=== PATIENT | male | born 1955 | race Caucasian/White ===

== ENCOUNTER 2025-08-01 12:45 | Emergency (ER) | payer MEDICARE, BC, SELFPAY ==
[2025-08-01 12:46] VITALS: BP 162/69; PULSE 66; RESP 18; TEMP 36.4; O2SAT 100; BMI 29.0
[2025-08-01 14:45] VITALS: BP 167/75; PULSE 57; RESP 16; O2SAT 98
--- NOTE | 2025-08-01 15:03 | CM.ED ---
Social Work Date of referral: 08/01/25 Reason for referral: Advanced Care Directives (ACD's) not on file. Patient provided consent to social work visit. [facility] requested copy of ACD's which patient agreed to bring in. Rachel Love, NEUROLOGICAL SURGEON, FIELD EXAMINER
--- NOTE | 2025-08-01 15:15 | CT_ITS ---
PROCEDURE: BRAIN/HEAD WITHOUT CONTRAST 08/01/2025 REASON FOR EXAM: INJURY TECHNIQUE: Procedure Code: CTBR Modality: CT Procedure: BRAIN/HEAD WITHOUT CONTRAST Coronal and Sagittal reconstruction series were provided. One or more dose reduction techniques were used (e.g., Automated exposure control, adjustment of the mA and/or kV according to patient size, use of iterative reconstruction technique. RADIATION DOSE SUMMARY: CTDlvol: 45 mGy DLP: 863 mGycm FINDINGS: No intracranial mass. No intracranial hemorrhage. No edema. No extra-axial mass or fluid collection. Negative for calvarial fracture. Negative for intracranial mass CT/Brain/Head without Contrast IMPRESSION: No acute abnormality. Reading Location: [facility]
--- OUTSIDE RECORDS SUMMARY | 2025-08-01 15:37 | XMS RPT_ITS | CCD ---
Author Organization [facility] Care Team Providers Care 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 Name Role Phone Sophia Martin MD Primary Care Provider Sophia Martin MD Primary Care Provider [phone] Haagen ROLLING CHAIR PUSHER.Sally CRAVEN Unavailable Suppan ROLLING CHAIR PUSHER.Cristiane CRAVEN Unavailable SOPHIA MARTIN Attending Unavailable SOPHIA MARTIN Primary Care Unavailable SOPHIA MARTIN Referring Unavailable SOPHIA MARTIN Primary Care Unavailable Allergies Allergy Classification Reported Allergen(s) Allergy Type Date of Onset Reaction(s) Facility (10 sources) Seasonal allergy; Translations: [SEASONAL ALLERGIES] Allergy to substance 2 Other: See Comments [facility] (10 sources) Sulfonamides (Antibiotic); Translations: [SULFA (SULFONAMIDE ANTIBIOTICS)] Propensity to adverse reactions 3 [facility] Work Phone: Medications Current Medications Medication Drug Class(es) Dates Sig (Normalized) Sig (Original) CPAP/BIPAP/OTHER (8 sources) CPAP/BIPAP/OTHER 1 % by VIA DEVICE route once daily. Type .CPAPSettings into a note to see current settings/supplies/DME information. Active CPAP/BIPAP/OTHER 1 % by VIA DEVICE route once daily. Type .CPAPSettings into a note to see current settings/supplies/DME information. 0 Active Comment on above: 1 % by VIA DEVICE ro rafael once daily. Type .CPAPSettings into a note to see current settings/supplies/DME information. famotidine 40 mg oral tablet (8 sources) Histamine-2 Receptor Antagonist famotidine (PEPCID) 40 mg tablet Take 40 mg by mouth as needed. Active Comment on above: Take 40 mg by mouth as needed. Completed/Discontinued Medications Medication Drug Class(es) Dates Sig (Normalized) Sig (Original) polyethylene glycol 3350 891052 mg / potassium chloride 2970 mg / sodium bicarbonate 6740 mg / sodium chloride 5860 mg / sodium sulfate 83619 mg powder for oral solution (1 source) Osmotic Laxative Start: 05-10-2023 End: 05-10-2023 peg 3350-Electrolytes (GOLYTELY) 236-22.74-6.74 -5.86 gram suspension Take 4,000 mL by mouth one time only for 1 dose. 1 Each 0 05/10/2023 05/10/2023 Comment on above: Take 4,000 mL by ruth th one time only for 1 dose. Problems Active Problems Problem Classification Problem Date Documented Da te Episodic/Chronic Disorders of lipid metabolism (3 sources) Hypertriglyceridemia; Translations: [Pure hyperglyceridemia] Onset: 5 05-09-2023 Chronic Esophageal disorders (10 sources) Gastroesophageal reflux disease; Translations: [Gastro-esophageal reflux disease without esophagitis] Onset: 8 03-02-2008 Chronic Gout and other crystal arthropathies (13 sources) Gout; Translations: [Gout, unspecified] Onset: 1 05-09-2023 Chronic Hyperplasia of prostate (1 source) Benign prostatic hyperplasia; Translations: [Benign prostatic hyperplasia without lower urinary tract symptoms] 05-09-2023 Chronic Immunizations and screening for infectious disease (3 sources) Vaccination needed; Translations: [Encounter for immunization] Onset: 5 05-09-2023 Episodic Other gastrointestinal disorders (1 source) Chronic constipation; Translations: [Other constipation] 05-09-2023 Episodic Other male genital disorders (9 sources) Male erectile dysfunction, unspecified; Translations: [Impotence of organic origin] Onset: 2 06-24-2012 Chronic Other nutritional; endocrine; and metabolic disorders (1 source) Cholesterol level - finding; Translations: [Lipoprotein deficiency] 05-22-2024 Chronic Other nutritional; endocrine; and metabolic disorders (10 sources) Body mass index 25-29 - overweight; Translations: [Overweight] 05-03-2021 Episodic Other screening for suspected conditions (not mental disorders or infectious disease) (10 sources) Patient encounter status; Translations: [Encounter for screening for malignant neoplasm of colon] Onset: 5 05-09-2023 Episodic Other skin disorders (1 source) Lesion of face; Translations: [Disorder of the skin and subcutaneous tissue, unspecified] 05-09-2023 Episodic Other skin disorders (1 source) Skin lesion; Translations: [Disorder of the skin and subcutaneous tissue, unspecified] 05-22-2024 Episodic Residual codes; unclassified (12 sources) Obstructive sleep apnea syndrome; Translations: [Obstructive sleep apnea (adult) (pediatric)] Onset: 8 05-09-2023 Chronic Residual codes; unclassified (1 source) Obstructive sleep apnea (adult) (pediatric); Translations: [Obstructive sleep apnea] Onset: 1 Chronic Residual codes; unclassified (15 sources) Family history of cancer of colon; Translations: [Family history of malignant neoplasm of digestive organs] Onset: 8 05-09-2023 Episodic Screening and history of mental health and substance abuse codes (2 sources) Encounter for screening examination for other mental health and behavioral disorders; Translations: [Encounter for screening for depression] Onset: 5 Episodic Spondylosis; intervertebral disc disorders; other back problems (12 sources) Degeneration of lumbar intervertebral disc; Translations: [Other intervertebral disc degeneration, lumbar region] Onset: 8 05-09-2023 Chronic Unclassified (1 source) Degeneration of intervertebral disc of lumbar region, unspecified whether pain present; Translations: [Degeneration of intervertebral disc of lumbar region, unspecified whether pain present] Onset: 8 Past or Other Problems Problem Classification Problem Date Documented Da te Episodic/Chronic Allergic reactions (11 sources) Eczema; Translations: [Dermatitis, unspecified] Onset: 03-08-2017 03-08-2017 Episodic Gastritis and duodenitis (4 sources) Gastritis; Translations: [Other gastritis without bleeding] Onset: 05-28-2006 Resolved: 12-23-2014 12-23-2014 Episodic Other nervous system disorders (4 sources) Spinal cord disease; Translations: [Other specified diseases of spinal cord] Onset: 07-29-2003 Resolved: 01-18-2014 01-18-2014 Chronic Other skin disorders (9 sources) Seborrheic keratosis; Translations: [Other seborrheic keratosis] Resolved: 06-09-2025 05-03-2021 Episodic Residual codes; unclassified (1 source) Family history of malignant neoplasm of digestive organs; Translations: [Family history of colon cancer in father] Onset: 04-11-2018 Episodic Viral infection (4 sources) 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; 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] Onset: 07-29-2003 Resolved: 01-18-2014 01-18-2014 Episodic Results Test Name Value Interpretation Reference Range Facility CBC W Auto Differential pane l (Bld)on 07-12-2025 Basophils (Bld) [#/Vol] 0.06 10*3/uL Normal <0.11 [facility] Comment on above: Order Comment: Evelinai julio cesar Type: BLOOD SPECIMEN Ordering Facility: [facility] Address: [address] [place] [address] Performed By: #### 5 7021-8 #### [facility] CLIA [id number] [address] [place] [address] [place] Basophils/100 WBC (Bld) 0.9 % Normal [facility] Comment on above: Order Comment: Speci men Type: BLOOD SPECIMEN Ordering Facility: [facility] Address: [address] [place] [address] Performed By: #### 5 7021-8 #### [facility] CLIA [id number] [address] [place] [address] [place] Differential cell count method Nom (Bld) Auto Normal [facility] Comment on above: Order Comment: Speci men Type: BLOOD SPECIMEN Ordering Facility: [facility] Address: [address] [place] [address] Performed By: #### 5 7021-8 #### [facility] CLIA [id number] [address] [place] [address] [place] Eosinophils (Bld) [#/Vol] 0.28 10*3/uL Normal <0.46 [facility] Comment on above: Order Comment: Speci men Type: BLOOD SPECIMEN Ordering Facility: [facility] Address: [address] [place] [address] Performed By: #### 5 7021-8 #### [facility] CLIA [id number] [address] [place] [address] [place] Eosinophils/100 WBC (Bld) 4.1 % Normal [facility] Comment on above: Order Comment: Speci men Type: BLOOD SPECIMEN Ordering Facility: [facility] Address: [address] [place] [address] Performed By: #### 5 7021-8 #### [facility] CLIA [id number] [address] [place] [address] [place] Erythrocyte distribution width (RBC) [Ratio] 13.0 % Normal 11.5-15.0 [facility] Comment on above: Order Comment: Speci men Type: BLOOD SPECIMEN Ordering Facility: [facility] Address: [address] [place] [address] Performed By: #### 5 7021-8 #### [facility] CLIA [id number] [address] [place] [address] [place] Hematocrit (Bld) [Volume fraction] 46.9 % Normal 39.0-51.0 [facility] Comment on above: Order Comment: Speci men Type: BLOOD SPECIMEN Ordering Facility: [facility] Address: [address] [place] [address] Performed By: #### 5 7021-8 #### [facility] CLIA [id number] [address] [place] [address] [place] Hemoglobin (Bld) [Mass/Vol] 15.9 g/dL Normal 13.0-17.0 [facility] Comment on above: Order Comment: Speci men Type: BLOOD SPECIMEN Ordering Facility: [facility] Address: [address] [place] [address] Performed By: #### 5 7021-8 #### [facility] CLIA [id number] [address] [place] [address] [place] Immature granulocytes (Bld) [#/Vol] 0.08 10*3/uL Normal <0.10 [facility] Comment on above: Order Comment: Speci men Type: BLOOD SPECIMEN Ordering Facility: [facility] Address: [address] [place] [address] Performed By: #### 5 7021-8 #### [facility] CLIA [id number] [address] [place] [address] [place] Immature granulocytes/100 WBC (Bld) 1.2 % Normal [facility] Comment on above: Order Comment: Speci men Type: BLOOD SPECIMEN Ordering Facility: [facility] Address: [address] [place] [address] Performed By: #### 5 7021-8 #### [facility] CLIA [id number] [address] [place] [address] [place] Lymphocytes (Bld) [#/Vol] 1.38 10*3/uL Normal 1.00-4.00 [facility] Comment on above: Order Comment: Speci men Type: BLOOD SPECIMEN Ordering Facility: [facility] Address: [address] [place] [address] Performed By: #### 5 7021-8 #### [facility] CLIA [id number] [address] [place] [address] [place] Lymphocytes/100 WBC (Bld) 20.4 % Normal [facility] Comment on above: Order Comment: Speci men Type: BLOOD SPECIMEN Ordering Facility: [facility] Address: [address] [place] [address] Performed By: #### 5 7021-8 #### [facility] CLIA [id number] [address] [place] [address] [place] MCH (RBC) [Entitic mass] 31.1 pg Normal 26.0-34.0 [facility] Comment on above: Order Comment: Speci men Type: BLOOD SPECIMEN Ordering Facility: [facility] Address: [address] [place] [address] Performed By: #### 5 7021-8 #### [facility] CLIA [id number] [address] [place] [address] [place] MCHC (RBC) [Mass/Vol] 33.9 g/dL Normal 30.5-36.0 [facility] Comment on above: Order Comment: Speci men Type: BLOOD SPECIMEN Ordering Facility: [facility] Address: [address] [place] [address] Performed By: #### 5 7021-8 #### [facility] CLIA [id number] [address] [place] [address] [place] MCV (RBC) [Entitic vol] 91.6 fL Normal 80.0-100.0 [facility] Comment on above: Order Comment: Speci men Type: BLOOD SPECIMEN Ordering Facility: [facility] Address: [address] [place] [address] Performed By: #### 5 7021-8 #### [facility] CLIA [id number] [address] [place] [address] [place] Monocytes (Bld) [#/Vol] 0.58 10*3/uL Normal <0.87 [facility] Comment on above: Order Comment: Speci men Type: BLOOD SPECIMEN Ordering Facility: [facility] Address: [address] [place] [address] Performed By: #### 5 7021-8 #### [facility] CLIA [id number] [address] [place] [address] [place] Monocytes/100 WBC (Bld) 8.6 % Normal [facility] Comment on above: Order Comment: Speci men Type: BLOOD SPECIMEN Ordering Facility: [facility] Address: [address] [place] [address] Performed By: #### 5 7021-8 #### [facility] CLIA [id number] [address] [place] [address] [place] Neutrophils (Bld) [#/Vol] 4.40 10*3/uL Normal 1.45-7.50 [facility] Comment on above: Order Comment: Speci men Type: BLOOD SPECIMEN Ordering Facility: [facility] Address: [address] [place] [address] Performed By: #### 5 7021-8 #### [facility] CLIA [id number] [address] [place] [address] [place] Neutrophils/100 WBC (Bld) 64.8 % Normal [facility] Comment on above: Order Comment: Speci men Type: BLOOD SPECIMEN Ordering Facility: [facility] Address: [address] [place] [address] Performed By: #### 5 7021-8 #### [facility] CLIA [id number] [address] [place] [address] [place] Nucleated RBC (Bld) [#/Vol] 10*3/uL Normal <0.01 [facility] Comment on above: Order Comment: Speci men Type: BLOOD SPECIMEN Ordering Facility: [facility] Address: [address] [place] [address] Performed By: #### 5 7021-8 #### [facility] CLIA [id number] [address] [place] [address] [place] Nucleated RBC/100 WBC (Bld) [Ratio] 0.0 /100 WBC Normal [facility] Comment on above: Order Comment: Speci men Type: BLOOD SPECIMEN Ordering Facility: [facility] Address: [address] [place] [address] Performed By: #### 5 7021-8 #### [facility] CLIA [id number] [address] [place] [address] [place] Platelet mean volume (Bld) [Entitic vol] 10.0 fL Normal 9.0-12.7 [facility] Comment on above: Order Comment: Speci men Type: BLOOD SPECIMEN Ordering Facility: [facility] Address: [address] [place] [address] Performed By: #### 5 7021-8 #### [facility] CLIA [id number] [address] [place] [address] [place] Platelets (Bld) [#/Vol] 187 10*3/uL Normal 150-400 [facility] Comment on above: Order Comment: Speci men Type: BLOOD SPECIMEN Ordering Facility: [facility] Address: [address] [place] [address] Performed By: #### 5 7021-8 #### [facility] CLIA [id number] [address] [place] [address] [place] RBC (Bld) [#/Vol] 5.12 10*6/uL Normal 4.20-6.00 [facility] Comment on above: Order Comment: Speci men Type: BLOOD SPECIMEN Ordering Facility: [facility] Address: [address] [place] [address] Performed By: #### 5 7021-8 #### [facility] CLIA [id number] [address] [place] [address] [place] WBC (Bld) [#/Vol] 6.78 10*3/uL Normal 3.70-11.00 [facility] Comment on above: Order Comment: Speci men Type: BLOOD SPECIMEN Ordering Facility: [facility] Address: [address] [place] [address] Performed By: #### 5 7021-8 #### [facility] CLIA [id number] [address] [place] [address] [place] Comprehensive metabolic 2000 panelon 07-12-2025 Albumin [Mass/Vol] 4.2 g/dL Normal 3.9-4.9 [facility] Comment on above: Order Comment: Speci men Type: BLOOD SPECIMEN Ordering Facility: [facility] Address: [address] [place] [address] Performed By: #### 2 4323-8, 82133-2 #### [facility] CLIA [id number] [address] [place] [address] [place] ALP [Catalytic activity/Vol] 99 U/L Normal 38-113 [facility] Comment on above: Order Comment: Speci men Type: BLOOD SPECIMEN Ordering Facility: [facility] Address: [address] [place] [address] Performed By: #### 2 4323-8, 61270-6 #### [facility] CLIA [id number] [address] [place] [address] [place] ALT [Catalytic activity/Vol] 27 U/L Normal 10-54 [facility] Comment on above: Order Comment: Speci men Type: BLOOD SPECIMEN Ordering Facility: [facility] Address: [address] [place] [address] Performed By: #### 2 4323-8, 93431-9 #### [facility] CLIA [id number] [address] [place] [address] [place] Anion gap [Moles/Vol] 10 mmol/L Normal 8-15 [facility] Comment on above: Order Comment: Speci men Type: BLOOD SPECIMEN Ordering Facility: [facility] Address: [address] [place] [address] Performed By: #### 2 4323-8, 51175-1 #### [facility] CLIA [id number] [address] [place] [address] [place] AST [Catalytic activity/Vol] 20 U/L Normal 14-40 [facility] Comment on above: Order Comment: Speci men Type: BLOOD SPECIMEN Ordering Facility: [facility] Address: [address] [place] [address] Performed By: #### 2 4323-8, 04964-1 #### [facility] CLIA [id number] [address] [place] [address] [place] Bilirubin [Mass/Vol] 1.0 mg/dL Normal 0.2-1.3 [facility] Comment on above: Order Comment: Speci men Type: BLOOD SPECIMEN Ordering Facility: [facility] Address: [address] [place] [address] Performed By: #### 2 4323-8, 37388-7 #### [facility] CLIA [id number] [address] [place] [address] [place] Calcium [Mass/Vol] 9.3 mg/dL Normal 8.5-10.2 [facility] Comment on above: Order Comment: Speci men Type: BLOOD SPECIMEN Ordering Facility: [facility] Address: [address] [place] [address] Performed By: #### 2 4323-8, 17691-1 #### [facility] CLIA [id number] [address] [place] [address] [place] Chloride [Moles/Vol] 103 mmol/L Normal 98-107 [facility] Comment on above: Order Comment: Speci men Type: BLOOD SPECIMEN Ordering Facility: [facility] Address: [address] [place] [address] Performed By: #### 2 4323-8, 05599-0 #### [facility] CLIA [id number] [address] [place] [address] [place] CO2 [Moles/Vol] 27 mmol/L Normal 22-30 [facility] Comment on above: Order Comment: Speci men Type: BLOOD SPECIMEN Ordering Facility: [facility] Address: [address] [place] [address] Performed By: #### 2 4323-8, 71530-8 #### [facility] CLIA [id number] [address] [place] [address] [place] Creatinine [Mass/Vol] 0.99 mg/dL Normal 0.73-1.22 [facility] Comment on above: Order Comment: Speci men Type: BLOOD SPECIMEN Ordering Facility: [facility] Address: [address] [place] [address] Performed By: #### 2 4323-8, 25987-4 #### [facility] CLIA [id number] [address] [place] [address] [place] eGFRcr SerPlBld CKD-EPI 2020 82 mL/min/1.73m??? Normal >=60 [facility] Comment on above: Order Comment: Speci men Type: BLOOD SPECIMEN Ordering Facility: [facility] Address: [address] [place] [address] Result Comment: Arpita mated Glomerular Filtration Rate (eGFR) is calculated using the 2020 CKD-EPI creatinine equation. This equation utilizes serum creatinine, sex, and age as parameters. The creatinine assay has traceable calibration to isotope dilution-mass spectrometry. Refer to KDIGO guidelines for clinical interpretation. In patients with unstable renal function, e.g. those with acute kidney injury, the eGFR may not accurately reflect actual GFR. Performed By: #### 2 4323-8, 90772-6 #### [facility] CLIA [id number] [address] [place] [address] [place] Glucose [Mass/Vol] 91 mg/dL Normal 74-99 [facility] Comment on above: Order Comment: Jani harrell Type: BLOOD SPECIMEN Ordering Facility: [facility] Address: [address] [place] [address] Result Comment: The [place] [employer] (ADA) provides guidance for cutoff values for fasting glucose and random glucose. The ADA defines fasting as no caloric intake for at least 8 hours. Fasting plasma glucose results between 100 to 125 mg/dL indicate increased risk for diabetes (prediabetes). Fasting plasma glucose results greater than or equal to 126 mg/dL meet the criteria for diagnosis of diabetes. In the absence of unequivocal hyperglycemia, results should be confirmed by repeat testing. In a patient with classic symptoms of hyperglycemia or hyperglycemic crisis, random plasma glucose results greater than or equal to 200 mg/dL meet the criteria for diagnosis of diabetes. Reference: Standards of Medical Care in Diabetes 2016, [place] [employer]. Diabetes Care. 2016.39(Suppl 1). Performed By: #### 2 4323-8, 18094-1 #### [facility] CLIA [id number] [address] [place] [address] [place] Potassium [Moles/Vol] 4.2 mmol/L Normal 3.7-5.1 [facility] Comment on above: Order Comment: Jani harrell Type: BLOOD SPECIMEN Ordering Facility: [facility] Address: [address] [place] [address] Performed By: #### 2 4323-8, 59665-6 #### [facility] CLIA [id number] [address] [place], [place] [address] [place] Protein [Mass/Vol] 6.7 g/dL Normal 6.3-8.0 [facility] Comment on above: Order Comment: Speci men Type: BLOOD SPECIMEN Ordering Facility: [facility] Address: [address] [place] [address] Performed By: #### 2 4323-8, 29630-2 #### [facility] CLIA [id number] [address] [place] [address] [place] Sodium [Moles/Vol] 140 mmol/L Normal 136-144 [facility] Comment on above: Order Comment: Speci men Type: BLOOD SPECIMEN Ordering Facility: [facility] Address: [address] [place] [address] Performed By: #### 2 4323-8, 51362-5 #### [facility] CLIA [id number] [address] [place] [address] [place] Urea nitrogen [Mass/Vol] 15 mg/dL Normal 9-24 [facility] Comment on above: Order Comment: Speci men Type: BLOOD SPECIMEN Ordering Facility: [facility] Address: [address] [place] [address] Performed By: #### 2 4323-8, 13289-0 #### [facility] CLIA [id number] [address] [place] [address] [place] Lipid 1996 panelon 5 Cholesterol [Mass/Vol] 170 mg/dL Normal <200 [facility] Comment on above: Order Comment: Speci men Type: BLOOD SPECIMEN Ordering Facility: [facility] Address: [address] [place] [address] Result Comment: <200 mg/dL, Desirable 200-239 mg/dL, Borderline high >239 mg/dL, High Performed By: #### 2 4323-8, 96425-4 #### [facility] MAIN LAB CLIA [id number] [address] [place] [address] [place] Cholesterol in HDL [Mass/Vol] 41 mg/dL Normal >39 [facility] Comment on above: Order Comment: Speci men Type: BLOOD SPECIMEN Ordering Facility: [facility] Address: [address] [place], [place] [id number] Result Comment: 40-5 9 mg/dL, Acceptable >59 mg/dL, High: Negative risk factor for coronary heart disease <40 mg/dL, Low: Positive risk factor for coronary heart disease Performed By: #### 2 4323-8, 24078-1 #### [facility] CLIA [id number] [address] [place] [address] [place] Cholesterol in LDL [Mass/Vol] 107 mg/dL High <100 [facility] Comment on above: Order Comment: Jani harrell Type: BLOOD SPECIMEN Ordering Facility: [facility] Address: [address] [place] [address] Result Comment: <100 mg/dL, Optimal 100-129 mg/dL, Near optimal/above optimal 130-159 mg/dL, Borderline high 160-189 mg/dL, High >189 mg/dL, Very high Secondary prevention optimal LDL Cholesterol levels are recommended to be <70 mg/dL LDL cholesterol is calculated using the Morales-NIH equation. Performed By: #### 2 4323-8, #### [facility] CLIA [id number] [facility] [place] [address] [place] Cholesterol in LDL/Cholesterol in HDL [Mass ratio] 2.61 {ratio} High <2.54 [facility] Comment on above: Order Comment: Jani harrell Type: BLOOD SPECIMEN Ordering Facility: [facility] Address: [address] [place] [address] Result Comment: Janie martines: 1. National Cholesterol Education Program ATP III Guideline At-A-Glance Quick Desk Reference: National Heart, Lung, and Blood [place]. National Institutes of Health. 2001: NIH Publication No. 01-3305. 2. An International Atherosclerosis Society position paper: global recommendations for the management of dyslipidemia: executive summary, Atherosclerosis. 2014: 232(2):410-413. Performed By: #### 2 4323-8, 10345-7 #### [facility] CLIA [id number] [address] [place] [address] [place] Cholesterol in VLDL [Mass/Vol] 20 mg/dL Normal <30 [facility] Comment on above: Order Comment: Speci men Type: BLOOD SPECIMEN Ordering Facility: [facility] Address: [address] [place] [address] Performed By: #### 2 4323-8, 91319-2 #### [facility] CLIA [id number] [address] [place] [address] [place] Cholesterol non HDL [Mass/Vol] 129 mg/dL Normal <130 [facility] Comment on above: Order Comment: Speci men Type: BLOOD SPECIMEN Ordering Facility: [facility] Address: [address] [place] [address] Result Comment: <130 mg/dL, Optimal 130-159 mg/dL, Near optimal/above optimal 160-189 mg/dL, Borderline high 190-219 mg/dL, High >219 mg/dL, Very high Secondary prevention optimal non HDL Cholesterol levels are recommended to be <100 mg/dL Performed By: #### 2 4323-8, 78862-3 #### [facility] CLIA [id number] [address] [place] [address] [place] Cholesterol.total /Cholesterol in HDL [Mass ratio] 4.15 {ratio} Normal <5.10 [facility] Comment on above: Order Comment: Speci men Type: BLOOD SPECIMEN Ordering Facility: [facility] Address: [address] [place] [address] Performed By: #### 2 4323-8, 66576-0 #### [facility] CLIA [id number] [address] [place] [address] [place] FASTING TIME 12 hrs Normal [facility] Comment on above: Order Comment: Speci men Type: BLOOD SPECIMEN Ordering Facility: [facility] Address: [address] [place] [address] Performed By: #### 2 4323-8, 80625-4 #### [facility] CLIA [id number] [address] [place] [address] [place] Triglyceride [Mass/Vol] 121 mg/dL Normal <150 [facility] Comment on above: Order Comment: Speci men Type: BLOOD SPECIMEN Ordering Facility: [facility] Address: [address] [place] [address] Result Comment: <150 mg/dL, Normal 150-199 mg/dL, Borderline high 200-499 mg/dL, High >499 mg/dL, Very high Performed By: #### 2 4323-8, 37312-7 #### [facility] CLIA [id number] [address] [place] [address] [place] PSA/PROSTATE SPECIFIC ANTIGE N SCREENINGon 07-12-2025 Prostate specific Ag [Mass/Vol] 1.06 ng/mL Normal <2.60 [facility] Comment on above: Order Comment: Speci men Type: BLOOD SPECIMEN Ordering Facility: [facility] Address: [address] [place] [address] Result Comment: Tota l PSA test methodology used is the Electrochemiluminescence Immunoassay by [employer]. Total PSA values by differing methodologies cannot be interchanged. Performed By: #### P SAS1 #### [facility] CLIA [id number] [address] [place] [address] OF [facility] CNOVon 06-09-2025 CNOV Office Visit (FAMPWS ) BARTOLOME LIU ([id number]) 1955 M Date Time Provider Department 06/09/25 8:00 AM [facility] During your visit today, we recorded the following information about you: Pulse Blood pressure 63/minute 100/57 Sophia aMrtin MD 06/09/2025 9:29 AM Signed Bartolome Liu is a 69 year old male here for a Medicare wellness visit. Medicare Health Risk Assessment General Health Pretty good. Exercise: Minutes/Day Six hours Exercise: Days/Week Six Alcohol: Daily Use no Alcohol: Drinks/Day no Alcohol: 6 or more drinks no Feel off balance no Concerns: Teeth/Dentures no Concerns: Sexual function Some ED Troubled by feelings no Frequency: Eating healthy diet seven ADLs requiring help none Safety precautions in home/vehicle yes Smoke, vape, chews tobacco no Difficulty hearing Some. Right ear deaf. Difficulty seeing Doing well after cataract. Current Providers Specialists: I have reviewed specialist-related care of the patient in the medical record. Current care team: Patient Care Team: Sophia Martin MD as PCP - General (Family Medicine) Sally Pathak APRN.HERBER as Business Applications Manager (Family Medicine) Cristiane Ledezma APRN.CNP as Business Applications Manager (Family Medicine) Outside specialists seen: Dr Barros, optemetry. Dr Mendoza, sleep med Medical/Family history review Reviewed and updated problem list, medical/surgical/family/soci al history, medications, and allergies. Opioid use review Opioid Medications (last 90 days) No data to display Anxiety/Depression screening (Lower risk for depression) GAMAL-2 Score: 0 Recommendation: no further intervention at this time Cognitive screening Mini Cog Score: 5 Cognitive screening reviewed and No further action needed (score 3-5). Functional Observation Was the patient's Timed Up AND Go test unsteady or >= 12 seconds? No Advance Care Planning Surrogate decision maker and/or advance care plan documented Measurements BP 100/57 Pulse 63 SpO2 97% Vision Screening: Follows with optometry/ophthalmology ADDITIONAL INFO: Annual Wellness Exam: - Bartolome Liu describes general health as pretty good. - Engages in outdoor work approximately 6 hours/day, 6 days/week. - Denies alcohol consumption; does not smoke, vape, or chew tobacco. - Adheres to a healthy diet 7 days/week. - Denies issues with balance, teeth, or dentures. - Denies feeling nervous, anxious, or on edge; no difficulty controlling worrying. - Denies feeling down, depressed, or hopeless; no loss of interest or pleasure in activities. - Denies current ear or eye pain. - Denies current chest pain, swelling, or palpitations. - Denies current cough or wheezing. - Denies use of pain pills or opioids. - Denies current issues with eczema or gout. - Denies current back pain. - Denies current issues with urination. - Denies current issues with ADLs. - Follows safety precautions in home and vehicle. - Has a medical living will; is primary decision-maker, followed by daughter. - Has not received a flu shot in several years; denies receiving RSV vaccine. - Sees Dr. Moise for eye care. - Sees Dr. Mendoza for sleep apnea management. - Allergic to sulfa; has hay fever. 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 - Left ear hearing is pretty good. Vision: - Underwent cataract surgery a few years ago; vision is nearly 20/20. - Requires reading glasses for small print. - Experiences floaters approximately twice a week; denies frequent flashes of light. ED: - Experiences erectile dysfunction; previously used Viagra and Cialis but discontinued. Sleep Apnea: - Managed with CPAP; doing well. GERD: - Managed with Pepcid PRN; took 1-2 doses in the last 30 days. Constipation: - Chronic issue; uses stool softeners occasionally but dislikes the unpredictability of their effect. ROS: Eyes: (+) floaters, (+) flashes of light, (+) difficulty reading small print, (-) eye pain Ears/Nose/Mouth/Throat: (+) right ear hearing loss, (-) dental problems, (-) ear pain, (-) oral soreness Neck: (-) neck pain Cardiovascular: (-) chest pain, (-) palpitations, (-) edema, (-) syncope Respiratory: (-) cough, (-) wheezing Gastrointestinal: (+) constipation Genitourinary: (+) erectile dysfunction, (-) urinary issues Musculoskeletal: (-) back pain Neurological: (-) balance problems Psychiatric: (-) anxiety, (-) depressed mood PE: General: Alert, well-developed, no acute distress. HEENT: Tympanic membranes clear, mouth and throat unremarkable. Hearing loss noted in the right ear due to past eardrum damage. Vision is good post-cataract surgery with corrective lenses for reading. No pharyngeal erythema, no sinus tenderness. Neck: No JVD. No carotid bruit, carotids 2+ (more content not included)... Normal [facility] 08-17-2024 [facility] Telephone (FAMPWS) RAFAELA LIUMALIA Davis ([id number]) 1955 M Date Time Provider Department 08/17/24 SOPHIA MARTIN During your visit today, we recorded the following information about you: Yumiko Chauhan LPN 08/17/2024 11:39 AM Signed After provider reviews pt would like a copy mailed to him. Per 06/13/24 lab results: Message in labs: Sophia Martin MD 06/15/2024 8:08 AM EDT See TELEPHONE ENCOUNTER regarding lab results. Staff will call patient to review next steps. TE message: Sophia Martin MD 06/15/24 8:09 AM Note Let him know his ldl is a little higher. Watch cholesterol in the diet. Sophia Martin MD Pt reports he never heard back on lab results. Please review and advise if there is more to the result message. Latest Ref Rng 06/13/2024 WBC 3.70 - 11.00 k/uL 7.06 RBC 4.20 - 6.00 m/uL 4.98 Hemoglobin 13.0 - 17.0 g/dL 15.2 Hematocrit 39.0 - 51.0 % 45.7 MCV 80.0 - 100.0 fL 91.8 MCH 26.0 - 34.0 pg 30.5 MCHC 30.5 - 36.0 g/dL 33.3 RDW-CV 11.5 - 15.0 % 12.8 Platelet Count 150 - 400 k/uL 197 MPV 9.0 - 12.7 fL 10.1 Neut% % 63.4 Abs Neut (ANC) 1.45 - 7.50 k/uL 4.48 Lymph% % 21.1 Abs Lymph 1.00 - 4.00 k/uL 1.49 Bailey% % 9.1 Abs Bailey <0.87 k/uL 0.64 Eosin% % 4.7 Abs Eosin <0.46 k/uL 0.33 Baso% % 0.6 Abs Baso <0.11 k/uL 0.04 Immature Gran % % 1.1 IMMATURE GRANS (ABS) <0.10 k/uL 0.08 NRBC /100 WBC 0.0 Absolute nRBC <0.01 k/uL <0.01 DTYPE Auto Protein, Total 6.3 - 8.0 g/dL 6.8 Albumin 3.9 - 4.9 g/dL 4.2 Calcium 8.5 - 10.2 mg/dL 9.5 Bilirubin, Total 0.2 - 1.3 mg/dL 0.7 Alkaline Phosphatase 38 - 113 U/L 108 AST 14 - 40 U/L 28 ALT 10 - 54 U/L 32 Glucose 74 - 99 mg/dL 99 BUN 9 - 24 mg/dL 17 Creatinine 0.73 - 1.22 mg/dL 0.98 Sodium 136 - 144 mmol/L 142 Potassium 3.7 - 5.1 mmol/L 4.3 Chloride 98 - 107 mmol/L 105 CO2 22 - 30 mmol/L 26 Anion Gap 8 - 15 mmol/L 11 eGFR >=60 mL/min/1.73m? 83 Cholesterol, Total <200 mg/dL 162 Triglyceride <150 mg/dL 105 HDL Cholesterol >39 mg/dL 39 (L) Non HDL Cholesterol <130 mg/dL 123 Fasting Time hrs 12 VLDL Cholesterol <30 mg/dL 21 TC:HDL Ratio <5.10 4.15 LDL Cholesterol <100 mg/dL 102 (H) LDL:HDL Ratio <2.54 2.62 (H) PSA Screening <2.60 ng/mL 1.27 Legend: (L) Low (H) High Sophia Martin MD 08/17/2024 11:44 AM Signed See note. He is overall ok. Flavia Redding MA 08/17/2024 12:16 PM Signed Called and left message on patients voicemail to return call to the office and ask to speak with a FM triage nurse. AIDA Warren Donna M, RN 08/17/2024 1:38 PM Signed Spoke with patient. Given message from provider's office. Patient verbalizes understanding. Noe Philippe RN Allergies As of Date: 08/17/2024 Noted Allergy Reaction HAY FEVER (SEASONAL ALLERGIES) 06/24/2012 14 - Other: See Comments SULFA (SULFONAMIDE ANTIBIOTICS) 07/29/2003 Date Reviewed: 05/22/2024 Reviewed by: Sophia Martin MD - Fully Assessed Reason for Visit: Results [95] Prescriptions as of 08/17/2024 - famotidine (PEPCID) 40 mg tablet Take 40 mg by mouth as needed. - CPAP/BIPAP/OTHER 1 % by VIA DEVICE route once daily. Type .CPAPSettings into a note to see current settings/supplies/DME information. 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 Other myelopathy (HCC) [G95.89] 07/29/2003 01/18/2014 Other specified gastritis without mention of he*05/28/2006 12/23/2014 ESOPHAGEAL REFLUX [K21.9] 03/02/2008 Erectile dysfunction [N52.9] 06/24/2012 Eczema [L30.9] 03/08/2017 DDD (degenerative disc disease), lumbar [M51.36*10/03/2017 Family history of colon cancer in father [Z80.0]04/11/2018 Overweight (BMI 25.0-29.9) [E66.3] Obstructive sleep apnea [G47.33] 03/2018 Gout, unspecified [M10.9] Seborrheic keratosis [L82.1] Encounter Status:Closed by NOE PHILIPPE on 08/17/24 Normal [facility] COLONOSCOPY SCREENINGon - [facility] Vital Signs Date Time Vital Sign Value Performing Clinician Shun jules 06-09-2025 07:57-0400 Diastolic blood pressure 57 mm[Hg] Sophia Martin MD Work Phone: [facility] 06-09-2025 07:57-0400 Heart rate 63 /min Sophia Martin MD Work Phone: [facility] 06-09-2025 07:57-0400 SaO2% (BldA) [Mass fraction] 97 % Sophia Martin MD Work Phone: [facility] 06-09-2025 07:57-0400 Systolic blood pressure 100 mm[Hg] Sophia Martin MD Work Phone: [facility] 05-22-2024 08:07-0400 Body mass index (BMI) [Ratio] 28.73 kg/m2 Sophia Martin MD Work Phone: [facility] 05-22-2024 08:07-0400 Body weight 93.44 kg Sophia Martin MD Work Phone: [facility] 05-22-2024 08:07-0400 Diastolic blood pressure 62 mm[Hg] Sophia Martin MD Work Phone: [facility] 05-22-2024 08:07-0400 Heart rate 65 /min Sophia Martin MD Work Phone: [facility] 05-22-2024 08:07-0400 SaO2% (BldA) [Mass fraction] 96 % Sophia Martin MD Work Phone: [facility] 05-22-2024 08:07-0400 Systolic blood pressure 122 mm[Hg] Sophia Martin MD Work Phone: [facility] 06-17-2023 08:54-0400 Diastolic blood pressure 69 mm[Hg] Rodolfo Hannah MD Work Phone: [facility] 06-17-2023 08:54-0400 Heart rate 52 /min Rodolfo Hannah MD Work Phone: [facility] 06-17-2023 08:54-0400 Respiratory rate 16 /min Rodolfo Hannah MD Work Phone: [facility] 06-17-2023 08:54-0400 SaO2% (BldA) [Mass fraction] 95 % Rodolfo Hannah MD Work Phone: [facility] 06-17-2023 08:54-0400 Systolic blood pressure 124 mm[Hg] Rodolfo Hannah MD Work Phone: [facility] 06-17-2023 07:49-0400 Body temperature 97.5 [degF] Rodolfo Hannah MD Work Phone: [facility] 06-17-2023 07:49-0400 Body weight 94.4 kg Rodolfo Hannah MD Work Phone: [facility] 05-10-2023 13:26-0400 Body height 180.3 cm Stacey Rafy PA-C Work Phone: [facility] 05-10-2023 13:26-0400 Body temperature 97.5 [degF] Stacey Gosnell PA-C Work Phone: [facility] 05-10-2023 13:26-0400 Body weight 94.44 kg Stacey Rafy PA-C Work Phone: [facility] 05-10-2023 13:26-0400 Diastolic blood pressure 64 mm[Hg] Stacey Gosnell PA-C Work Phone: [facility] 05-10-2023 13:26-0400 Heart rate 58 /min Stacey Gosnell PA-C Work Phone: [facility] 05-10-2023 13:26-0400 SaO2% (BldA) [Mass fraction] 97 % Stacey Rafy PA-C Work Phone: [facility] 05-10-2023 13:26-0400 Systolic blood pressure 122 mm[Hg] Stacey Rafy PA-C Work Phone: [facility] 05-09-2023 08:42-0400 Body height 177.8 cm Sophia Martin MD Work Phone: [facility] 05-09-2023 08:42-0400 Body weight 93.89 kg Sophia Martin MD Work Phone: [facility] 05-09-2023 08:42-0400 Diastolic blood pressure 66 mm[Hg] Sophia Martin MD Work Phone: [facility] 05-09-2023 08:42-0400 Heart rate 61 /min Sophia Martin MD Work Phone: [facility] 05-09-2023 08:42-0400 SaO2% (BldA) [Mass fraction] 97 % Sophia Martin MD Work Phone: [facility] 05-09-2023 08:42-0400 Systolic blood pressure 120 mm[Hg] Sophia Martin MD Work Phone: [facility] Encounters Encounter Date Encounter Type Care Provider Facility Start: 07-12-2025 End: 07-12-2025 ambulatory SOPHIA MARTIN Facility:[facility] Start: 06-09-2025 End: 06-09-2025 ambulatory SOPHIA MARTIN Facility:[facility] Start: 06-09-2025 End: 06-09-2025 Patient encounter procedure Sophia Martin MD Work Phone: Family [facility] Comment on above: Medicare annual well ness visit, subsequent (Primary Dx); Obstructive sleep apnea; Eczema, unspecified type; Gout, unspecified cause, unspecified chronicity, unspecified site; Degeneration of intervertebral disc of lumbar region, unspecified whether pain present; Encounter for immunization; Family history of colon cancer in father; Encounter for screening examination for other mental health and behavioral disorders; Screening for depression; Screening for prostate cancer; Mixed hyperlipidemia Start: 08-17-2024 End: 08-17-2024 Telephone encounter Sophia Martin MD Work Phone: Family [facility] Comment on above: Results Start: 06-15-2024 End: 06-15-2024 Telephone encounter Sophia Martin MD Work Phone: [facility] [place] Comment on above: Results Start: 05-22-2024 End: 05-22-2024 Patient encounter procedure Sophia Martin MD Work Phone: Family [facility] Comment on above: Medicare annual well ness visit, subsequent (Primary Dx); Gout, unspecified cause, unspecified chronicity, unspecified site; DDD (degenerative disc disease), lumbar; Gastroesophageal reflux disease without esophagitis; Obstructive sleep apnea; Family history of colon cancer in father; Overweight (BMI 25.0-29.9); Screening for depression; Encounter for screening examination for other mental health and behavioral disorders; Screening for prostate cancer; Low HDL (under 40); Skin lesion Start: 01-10-2024 ambulatory Shasta Bush MA [facility] Comment on above: Population Health [facility] Outreach ([employer] - AWV, Care gaps, HCC gap closure - [facility]) Start: 06-17-2023 End: 06-17-2023 Subsequent hospital visit by physician Rodolfo Hannah MD Work Phone: Ambulatory Surgery Comment on above: Family history of co pedro cancer [Z80.0] Start: 05-20-2023 Telephone encounter Sophia Martin MD Work Phone: Family [facility] Comment on above: Results Start: 05-10-2023 End: 05-10-2023 Patient encounter procedure Stacey Hillman PA-C Work Phone: General Surgery Comment on above: Encounter for screen ing for malignant neoplasm of colon (Primary Dx); Family history of colon cancer in father Start: 05-09-2023 End: 05-09-2023 Patient encounter procedure Sophia Martin MD Work Phone: [facility] Comment on above: Benign prostatic hyp erplasia without lower urinary tract symptoms (Primary Dx); Screening for colon cancer; Obstructive sleep apnea; Gout, unspecified cause, unspecified chronicity, unspecified site; DDD (degenerative disc disease), lumbar; Family history of colon cancer in father; Need for vaccination; Chronic constipation; Screening for prostate cancer; High triglycerides; Facial lesion Procedures Date Procedure Procedure Detail Performing Clinician Start: 06-09-2025 Adult depression scr eening assessment Sophia Martin MD Work Phone: Start: 06-13-2024 Lipid 1996 panel - S halina or Plasma Sophia Martin MD Work Phone: Start: 05-22-2024 Adult depression scr eening assessment Sophia Martin MD Work Phone: Start: 06-17-2023 Colonoscopy flx dx w /collj spec when pfrmd Stacey Hillman PA-C Work Phone: Start: 06-17-2023 Colonoscopy Rodolfo neville MD Work Phone: Start: 05-18-2023 Lipid 1996 panel - S halina or Plasma Rodolfo Hannah MD Work Phone: Start: 09-04-2013 Colonoscopy Sophia Goncalves MD Work Phone: Plan of Treatment Date Care Activity Detail Author Start: 02-25-2032 Urine microalbumin profile [facility] Start: 2029 RSV Vaccine (1 - 1-d ose 75+ series) RSV Vaccine (1 - 1-dose 75+ series) [facility] Start: 06-13-2029 Lipid panel Lipid Screening [facility] Start: 06-17-2028 Colonoscopy Colonoscopy [facility] Start: 06-17-2028 Colorectal Cancer Screening Colorectal Cancer Screening [facility] Start: 06-17-2028 Screening for malign ant neoplasm of colon [facility] Start: 05-18-2028 Lipid 1996 panel - Serum or Plasma Lipid Screening [facility] Start: 05-18-2028 Lipid panel Lipid Screening [facility] Start: 05-18-2028 LIPID SCREEN LIPID SCREEN [facility] Start: 05-18-2028 PROSTATE CANCER SCREENING DISCUSSION PROSTATE CANCER SCREENING DISCUSSION [facility] Start: 06-13-2027 Diabetes Screening Diabetes Screenin g [facility] Start: 06-13-2026 End: 06-13-2026 Patient encounter procedure 06/13/2026 8:00 AM EDT Office Visit Family [facility] [address] [place] [address] Sophia Martin MD [address] [place] [address] [facility] [place] Comment on above: [facility] Start: 06-09-2026 Anxiety Screening Anxiety Screening [facility] Start: 06-09-2026 Depression Screening Depression Scre ening [facility] Start: 06-09-2026 Shingrix Vaccine (1 of 2) Shingrix Vaccine (1 of 2) [facility] Comment on above: Postponed from 10/04 (Declined at this time) Start: 05-18-2026 DIABETES SCREEN DIABETES SCREEN [facility] Start: 05-18-2026 Diabetes Screening Diabetes Screenin g [facility] Start: 05-09-2026 LIPID SCREEN LIPID SCREEN [facility] Start: 06-09-2025 End: 09-08-2025 CBC W Auto Differential panel - Blood COMPLETE BLOOD COUNT AND DIFFERENTIAL Lab Routine Mixed hyperlipidemia Expected: 06/09/2025, Expires: 09/08/2025 [facility] Work Phone: Comment on above: Expected: 06/09/2025 , Expires: 09/08/2025 Start: 06-09-2025 End: 09-08-2025 Comprehensive metabolic 2000 panel - Serum or Plasma COMPREHENSIVE METABOLIC PANEL Lab Routine Mixed hyperlipidemia Expected: 06/09/2025, Expires: 09/08/2025 [facility] Comment on above: Expected: 06/09/2025 , Expires: 09/08/2025 Start: 06-09-2025 End: 09-08-2025 Lipid 1996 panel - Serum or Plasma LIPID PANEL, FASTING Lab Routine Mixed hyperlipidemia Expected: 06/09/2025, Expires: 09/08/2025 [facility] Comment on above: Expected: 06/09/2025 , Expires: 09/08/2025 Start: 06-09-2025 End: 09-08-2025 PSA/PROSTATE SPECIFIC ANTIGEN SCREENING PSA/PROSTATE SPECIFIC ANTIGEN SCREENING Lab Routine Screening for prostate cancer Expected: 06/09/2025, Expires: 09/08/2025 [facility] Comment on above: Expected: 06/09/2025 , Expires: 09/08/2025 Start: 06-09-2025 End: 06-09-2025 Patient encounter procedure 06/09/2025 8:00 AM EDT Office Visit [facility] [address] [place] [id number] Sophia Martin MD [address] [place] [address] 1 year physical [facility] Comment on above: 1 year physical Start: 05-22-2025 Anxiety Screening Anxiety Screening [facility] Start: 05-22-2025 Covid-19 Vaccine ( season) Covid-19 Vaccine () [facility] Comment on above: Postponed from 05/24 (Declined at this time) Start: 05-22-2025 Depression Screening Depression Scre ening [facility] Start: 05-22-2025 RSV Vaccine (1 - 1-d ose 60+ series) RSV Vaccine (1 - 1-dose 60+ series) [facility] Comment on above: Postponed from 10/04 (Declined at this time) Start: 08-30-2025 Shingrix Vaccine (1 of 2) Shingrix Vaccine (1 of 2) [facility] Comment on above: Postponed from 10/04 (Declined at this time) Start: 05-24-2024 Covid-19 Vaccine ( season) Covid-19 Vaccine ( season) [facility] Start: 05-24-2024 Influenza vaccination [facility] Start: 05-22-2024 End: 08-21-2024 CBC W Auto Differential panel - Blood COMPLETE BLOOD COUNT AND DIFFERENTIAL Lab Routine Gout, unspecified cause, unspecified chronicity, unspecified site Expected: 05/22/2024, Expires: 08/21/2024 [facility] Work Phone: Comment on above: Expected: 05/22/2024 , Expires: 08/21/2024 Start: 05-22-2024 End: 08-21-2024 Comprehensive metabolic 2000 panel - Serum or Plasma COMPREHENSIVE METABOLIC PANEL Lab Routine Gout, unspecified cause, unspecified chronicity, unspecified site Expected: 05/22/2024, Expires: 08/21/2024 [facility] Comment on above: Expected: 05/22/2024 , Expires: 08/21/2024 Start: 05-22-2024 End: 08-21-2024 Lipid 1996 panel - Serum or Plasma LIPID PANEL BASIC Lab Routine Low HDL (under 40) Expected: 05/22/2024, Expires: 08/21/2024 [facility] Comment on above: Expected: 05/22/2024 , Expires: 08/21/2024 Start: 05-22-2024 End: 08-21-2024 PSA/PROSTATE SPECIFIC ANTIGEN SCREENING PSA/PROSTATE SPECIFIC ANTIGEN SCREENING Lab Routine Screening for prostate cancer Expected: 05/22/2024, Expires: 08/21/2024 [facility] Comment on above: Expected: 05/22/2024 , Expires: 08/21/2024 Start: 05-09-2024 COVID-19 VACCINE (4 - Moderna series) COVID-19 VACCINE (4 - Moderna series) [facility] Comment on above: Postponed from 12/03 (Declined at this time) Start: 05-09-2024 DIABETES SCREEN DIABETES SCREEN [facility] Start: 05-09-2024 SHINGRIX VACCINE (1 of 2) SHINGRIX VACCINE (1 of 2) [facility] Comment on above: Postponed from 10/04 (Declined at this time) Start: 04-13-2024 PROSTATE CANCER SCREENING DISCUSSION PROSTATE CANCER SCREENING DISCUSSION [facility] Start: 09-23-2023 Advance Directive Discussion Advance Directive Discussion [facility] Start: 09-23-2023 Behavioral Health Screening Behavioral Health Screening [facility] Start: 06-20-2023 End: 08-20-2023 Thyrotropin [Units/volume] in Serum or Plasma TSH BLD Lab Routine Chronic constipation High triglycerides Expected: 06/20/2023, Expires: 08/20/2023 [facility] Work Phone: Comment on above: Expected: 06/20/2023 , Expires: 08/20/2023 Start: 05-24-2023 Covid-19 Vaccine () Covid-19 Vaccine () [facility] Start: 05-24-2023 Influenza vaccination [facility] Start: 05-09-2023 End: 07-09-2023 CBC W Auto Differential panel - Blood CBC + DIFF Lab Routine Gout, unspecified cause, unspecified chronicity, unspecified site Expected: 05/09/2023, Expires: 07/09/2023 [facility] Work Phone: Comment on above: Expected: 05/09/2023 , Expires: 07/09/2023 Start: 05-09-2023 End: 07-09-2023 Comprehensive metabolic 2000 panel - Serum or Plasma COMP METABOLIC PANEL Lab Routine Gout, unspecified cause, unspecified chronicity, unspecified site Expected: 05/09/2023, Expires: 07/09/2023 [facility] Work Phone: Comment on above: Expected: 05/09/2023 , Expires: 07/09/2023 Start: 05-09-2023 End: 07-09-2023 Lipid 1996 panel - Serum or Plasma LIPID PANEL BASIC Lab Routine High triglycerides Expected: 05/09/2023, Expires: 07/09/2023 [facility] Work Phone: Comment on above: Expected: 05/09/2023 , Expires: 07/09/2023 Start: 05-09-2023 End: 07-09-2023 PSA/PROSTSPECAG SCRN PSA/PROSTSPECAG SCRN Lab Routine Screening for prostate cancer Expected: 05/09/2023, Expires: 07/09/2023 [facility] Work Phone: Comment on above: Expected: 05/09/2023 , Expires: 07/09/2023 Start: 05-01-2020 FECAL OCCULT BLOOD FECAL OCCULT BLOO D [facility] Start: 05-01-2020 Screening for malign ant neoplasm of colon Fecal Occult Blood [facility] Start: 05-02-2019 COLORECTAL CANCER SCREENING COLORECTAL CANCER SCREENING [facility] Start: 09-04-2018 Colonoscopy COLONOSCOPY [facility] Start: 2014 RSV Vaccine (1 - 1-d ose 60+ series) RSV Vaccine (1 - 1-dose 60+ series) [facility] Start: 1999 COLOGUARD (FIT-DNA) COLOGUARD (FIT-D NA) [facility] Start: [address] COLONOGRAPHY [facility] Start: 1999 Screening for malign ant neoplasm of colon [facility] Start: 1999 SIGMOIDOSCOPY SIGMOIDOSCOPY [facility] Immunizations Immunization Date Immunization Notes Care Provider Fa cili 06-09-2025 influenza, high dose seasonal, preservative-free Sophia Martin MD Work Phone: [facility] 05-09-2023 pneumococcal polysaccharide vaccine, 23 valent Sophia Martin MD Work Phone: [facility] 02-24-2022 tetanus toxoid, redu janelle diphtheria toxoid, and acellular pertussis vaccine, adsorbed Sophia Martin MD Work Phone: [facility] 07-17-2021 influenza (aIIV4) vaccine, age 65+ yr, quadrivalent, PF (FLUAD QUAD) Sophia Martin MD Work Phone: [facility] 07-17-2021 influenza virus vacc ine, unspecified formulation Rodolfo Hannah MD Work Phone: [facility] 05-03-2021 pneumococcal conjuga te vaccine, 13 valent Sophia Martin MD Work Phone: [facility] 12-17-2020 COVID-19 original vaccine, full dose, monovalent (MODERNA) Sophia Martin MD Work Phone: [facility] 11-19-2020 COVID-19 original vaccine, full dose, monovalent (MODERNA) Sophia Martin MD Work Phone: [facility] 06-21-2020 influenza (aIIV4) vaccine, age 65+ yr, quadrivalent, PF (FLUAD QUAD) Sophia Martin MD Work Phone: [facility] Work Phone: 06-21-2020 influenza, high dose seasonal, preservative-free Sophia Martin MD Work Phone: [facility] 08-05-2017 influenza, seasonal, injectable Sophia Martin MD Work Phone: [facility] 12-28-2014 tetanus toxoid, redu janelle diphtheria toxoid, and acellular pertussis vaccine, adsorbed Sophia Martin MD Work Phone: [facility] 09-24-1999 diphtheria and tetan us toxoids, adsorbed for pediatric use Sophia Martin MD Work Phone: [facility] 01-20-1998 diphtheria and tetan us toxoids, adsorbed for pediatric use Sophia Martin MD Work Phone: [facility] Payers Date Payer Category Payer [facility] DICARE SUPPLEMENT [id number] 2022 Unknown [address] DICARE SUPPLEMENT [id number] 2022-Present [phone] [address] [place] [address] Indemnity [id number] 2022 Medicare [id number] 2019 Medicare [id number] 2019 Medicare [id number] Social History Date Type Detail Facility Start: 05-09-2023 Tobacco smoking stat [facility] Never smoked tobacco [facility] Start: 05-09-2023 Tobacco use and exposure Smokeless tobacco non-user [facility] Start: 05-09-2023 End: 06-09-2025 Alcohol intake Ex-drinker (finding) [facility] Start: 05-09-2023 End: 06-09-2025 History of Social function [facility] Work Phone: Start: 05-09-2023 End: 06-09-2025 Tobacco use panel [facility] Work Phone: Start: 08-24-2012 Adult Depression Screening Assessment 0 [facility] Work Phone: Start: 1955 Sex Assigned At Not on file [facility] Functional Status Date Assessment Result Facility 01-06-2015 Are you deaf, or do you have serious difficulty hearing No 01/06/2015 10:51 AM Ellen Slater MA No [facility] 01-06-2015 Are you blind, or do you have serious difficulty seeing, even when wearing glasses No 01/06/2015 10:51 AM Ellen Slater MA No [facility] 01-06-2015 Do you have serious difficulty walking or climbing stairs No 01/06/2015 10:51 AM Ellen Slater MA No [facility] 01-06-2015 Do you have difficul ty dressing or bathing No 01/06/2015 10:51 AM Ellen Slater MA No [facility] 01-06-2015 Because of a physica l, mental, or emotional condition, do you have difficulty doing errands alone such as visiting a physician's office or shopping No 01/06/2015 10:51 AM EDT Ellen Bonilla MA No [facility] Mental Status Date Assessment Result Facility 01-06-2015 Because of a physica l, mental, or emotional condition, do you have serious difficulty concentrating, remembering, or making decisions No 01/06/2015 10:51 AM EDEllen Ojeda MA No [facility] Clinical Notes 05-28-2006 to 06-09-2025 Patient InstructionsSophia Martin MD - 06/09/2025 8:11 AM EDTTelephone Encounter - Noe Philippe RN - 08/17/2024 1:38 PM ESTTelephone Encounter - Noe Philippe RN - 08/17/2024 1:38 PM EST Note Date & Type Note Facility 06-09-2025 Instructions Sophia Martin MD - 06/09/2025 8:39 AM EDT We discussed your Medicare Wellness Visit: - Your general health is good, and you remain very active, working outside approximately 6 hours a day, 6 days a week. - You do not smoke, drink alcohol regularly, or use tobacco products. - You are eating a healthy diet daily and are independent in all activities of daily living. - You passed your cognitive screening (Mini-Cog) with a perfect score of 5/5 and your Get Up and Go test with no issues. 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 Your left ear is functioning well. No further action is needed unless you notice changes. We discussed your vision: - Your vision is good following cataract surgery, though you use [id number] reading glasses as needed. You occasionally experience floaters, which is normal after cataract surgery. - If you notice flashes of light with the floaters, please see your eye doctor, Dr. Moise, promptly to ensure your retina is not affected. We discussed your sleep apnea: - You are managing your sleep apnea with a CPAP machine and are doing well. Continue follow-up with your sleep specialist, Dr. Mendoza, as needed. We discussed your reflux: - You are managing your reflux well and only occasionally use Pepcid. Continue to use it as needed. We discussed your back pain: - You experienced back pain earlier this year after heavy outdoor work but are no longer having issues. No further action is needed unless symptoms return. We discussed your constipation: - You occasionally use a stool softener but prefer to avoid it. To manage constipation, increase your fluid and fiber intake. Let me know if you notice significant changes in your bowel habits. We discussed your eczema and gout: - You have not had any issues with eczema or gout this year. No further action is needed unless symptoms recur. We discussed your colonoscopy: - Your last colonoscopy was on June 17, 2023, and showed diverticulosis and hemorrhoids, which are common findings. No polyps were found. Your next colonoscopy is due in 2027. We discussed your medications: - You are not using any pain medications or opioids. Continue to take your medications as prescribed. We discussed vaccines: - You received your flu shot today. - Consider the RSV, shingles, and tetanus vaccines, which are available at your pharmacy. The shingles vaccine is highly effective (93%) and provides long-term protection. - The COVID vaccine is recommended for individuals over 65. We do not have it in stock yet but expect it soon. You may also consider getting it at a pharmacy. We discussed routine blood work: - Routine labs (CBC, CMP, lipid panel, and PSA) are recommended for health maintenance. Please schedule these at your convenience. These labs should be done fasting (water and black coffee are allowed, but no food for 12 hours prior). Follow-Up: - I recommend seeing me again in one year for your next annual wellness visit unless new concerns arise. - If you notice any significant changes in your health, please contact the office. documented in this encounter [facility] 06-09-2025 Note HNO ID: [id number] Author: SOPHIA MARTIN MD Service: ? Author Type: Physician Type: Progress Notes Filed: 06/09/2025 09:29 Note Text: Bartolome Liu is a 69 year old male here for a Medicare wellness visit. Medicare Health Risk Assessment General Health Pretty good. Exercise: Minutes/Day Six hours Exercise: Days/Week Six Alcohol: Daily Use no Alcohol: Drinks/Day no Alcohol: 6 or more drinks no Feel off balance no Concerns: Teeth/Dentures no Concerns: Sexual function Some ED Troubled by feelings no Frequency: Eating healthy diet seven ADLs requiring help none Safety precautions in home/vehicle yes Smoke, vape, chews tobacco no Difficulty hearing Some. Right ear deaf. Difficulty seeing Doing well after cataract. Current Providers Specialists: I have reviewed specialist-related care of the patient in the medical record. Current care team: Patient Care Team: Sophia Martin MD as PCP - General (Family Medicine) Sally Pathak APRN.FEDERAL AID COORDINATOR as Business Applications Manager (Family Medicine) Cristiane Ledezma APRN.CNP as Business Applications Manager (Family Medicine) Outside specialists seen: Dr Barros, optemetry. Dr Mendoza, sleep med Medical/Family history review Reviewed and updated problem list, medical/surgical/family/social history, medications, and allergies. Opioid use review Opioid Medications (last 90 days) No data to display Anxiety/Depression screening (Lower risk for depression) GAMAL-2 Score: 0 Recommendation: no further intervention at this time Cognitive screening Mini Cog Score: 5 Cognitive screening reviewed and No further action needed (score 3-5). Functional Observation Was the patient's Timed Up AND Go test unsteady or >= 12 seconds? No Advance Care Planning Surrogate decision maker and/or advance care plan documented Measurements BP 100/57 Pulse 63 SpO2 97% Vision Screening: Follows with optometry/ophthalmology ADDITIONAL INFO: Annual Wellness Exam: - Bartolome Liu describes general health as pretty good. - Engages in outdoor work approximately 6 hours/day, 6 days/week. - Denies alcohol consumption; does not smoke, vape, or chew tobacco. - Adheres to a healthy diet 7 days/week. - Denies issues with balance, teeth, or dentures. - Denies feeling nervous, anxious, or on edge; no difficulty controlling worrying. - Denies feeling down, depressed, or hopeless; no loss of interest or pleasure in activities. - Denies current ear or eye pain. - Denies current chest pain, swelling, or palpitations. - Denies current cough or wheezing. - Denies use of pain pills or opioids. - Denies current issues with eczema or gout. - Denies current back pain. - Denies current issues with urination. - Denies current issues with ADLs. - Follows safety precautions in home and vehicle. - Has a medical living will; is primary decision-maker, followed by daughter. - Has not received a flu shot in several years; denies receiving RSV vaccine. - Sees Dr. Moise for eye care. - Sees Dr. Mendoza for sleep apnea management. - Allergic to sulfa; has hay fever. 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 - Left ear hearing is pretty good. Vision: - Underwent cataract surgery a few years ago; vision is nearly 20/20. - Requires reading glasses for small print. - Experiences floaters approximately twice a week; denies frequent flashes of light. ED: - Experiences erectile dysfunction; previously used Viagra and Cialis but discontinued. Sleep Apnea: - Managed with CPAP; doing well. GERD: - Managed with Pepcid PRN; took 1-2 doses in the last 30 days. Constipation: - Chronic issue; uses stool softeners occasionally but dislikes the unpredictability of their effect. ROS: Eyes: (+) floaters, (+) flashes of light, (+) difficulty reading small print, (-) eye pain Ears/Nose/Mouth/Throat: (+) right ear hearing loss, (-) dental problems, (-) ear pain, (-) oral soreness Neck: (-) neck pain Cardiovascular: (-) chest pain, (-) palpitations, (-) edema, (-) syncope Respiratory: (-) cough, (-) wheezing Gastrointestinal: (+) constipation Genitourinary: (+) erectile dysfunction, (-) urinary issues Musculoskeletal: (-) back pain Neurological: (-) balance problems Psychiatric: (-) anxiety, (-) depressed mood PE: General: Alert, well-developed, no acute distress. HEENT: Tympanic membranes clear, mouth and throat unremarkable. Hearing loss noted in the right ear due to past eardrum damage. Vision is good post-cataract surgery with corrective lenses for reading. No pharyngeal erythema, no sinus tenderness. Neck: No JVD. No carotid bruit, carotids 2+ bilaterally. Lungs: Respirations unlabored, clear to auscultation, no wheezes, rales, or rhonchi, symmetric air entry. Heart: Regular rate and rhythm, S1 and S2 normal, no murmur, no rub or gallop. Abdomen: Soft, non-tender. Ex (more content not included)... [facility] 06-09-2025 History of Presen t illness Narrative Images from the original note were not included. Bartolome Liu is a 69 year old male here for a Medicare wellness visit. Medicare Health Risk Assessment General Health Pretty good. Exercise: Minutes/Day Six hours Exercise: Days/Week Six Alcohol: Daily Use no Alcohol: Drinks/Day no Alcohol: 6 or more drinks no Feel off balance no Concerns: Teeth/Dentures no Concerns: Sexual function Some ED Troubled by feelings no Frequency: Eating healthy diet seven ADLs requiring help none Safety precautions in home/vehicle yes Smoke, vape, chews tobacco no Difficulty hearing Some. Right ear deaf. Difficulty seeing Doing well after cataract. Current Providers Specialists: I have reviewed specialist-related care of the patient in the medical record. Current care team: Patient Care Team: Sophia Martin MD as PCP - General (Family Medicine) Sally Pathak APRN.FEDERAL AID COORDINATOR as Business Applications Manager (Family Medicine) Cristiane Ledezma APRN.CNP as Business Applications Manager (Family Medicine) Outside specialists seen: Dr Barros, optemetry. Dr Mendoza, sleep med Medical/Family history review Reviewed and updated problem list, medical/surgical/family/social history, medications, and allergies. Opioid use review Opioid Medications (last 90 days) No data to display Anxiety/Depression screening (Lower risk for depression) GAMAL-2 Score: 0 Recommendation: no further intervention at this time Cognitive screening Mini Cog Score: 5 Cognitive screening reviewed and No further action needed (score 3-5). Functional Observation Was the patient's Timed Up & Go test unsteady or >= 12 seconds? No Advance Care Planning Surrogate decision maker and/or advance care plan documented Measurements BP 100/57 Pulse 63 SpO2 97% Vision Screening: Follows with optometry/ophthalmology ADDITIONAL INFO: Annual Wellness Exam: - Bartolome Liu describes general health as pretty good. - Engages in outdoor work approximately 6 hours/day, 6 days/week. - Denies alcohol consumption; does not smoke, vape, or chew tobacco. - Adheres to a healthy diet 7 days/week. - Denies issues with balance, teeth, or dentures. - Denies feeling nervous, anxious, or on edge; no difficulty controlling worrying. - Denies feeling down, depressed, or hopeless; no loss of interest or pleasure in activities. - Denies current ear or eye pain. - Denies current chest pain, swelling, or palpitations. - Denies current cough or wheezing. - Denies use of pain pills or opioids. - Denies current issues with eczema or gout. - Denies current back pain. - Denies current issues with urination. - Denies current issues with ADLs. - Follows safety precautions in home and vehicle. - Has a medical living will; is primary decision-maker, followed by daughter. - Has not received a flu shot in several years; denies receiving RSV vaccine. - Sees Dr. Moise for eye care. - Sees Dr. Mendoza for sleep apnea management. - Allergic to sulfa; has hay fever. 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 - Left ear hearing is pretty good. Vision: - Underwent cataract surgery a few years ago; vision is nearly 20/20. - Requires reading glasses for small print. - Experiences floaters approximately twice a week; denies frequent flashes of light. ED: - Experiences erectile dysfunction; previously used Viagra and Cialis but discontinued. Sleep Apnea: - Managed with CPAP; doing well. GERD: - Managed with Pepcid PRN; took 1-2 doses in the last 30 days. Constipation: - Chronic issue; uses stool softeners occasionally but dislikes the unpredictability of their effect. ROS: Eyes: (+) floaters, (+) flashes of light, (+) difficulty reading small print, (-) eye pain Ears/Nose/Mouth/Throat: (+) right ear hearing loss, (-) dental problems, (-) ear pain, (-) oral soreness Neck: (-) neck pain Cardiovascular: (-) chest pain, (-) palpitations, (-) edema, (-) syncope Respiratory: (-) cough, (-) wheezing Gastrointestinal: (+) constipation Genitourinary: (+) erectile dysfunction, (-) urinary issues Musculoskeletal: (-) back pain Neurological: (-) balance problems Psychiatric: (-) anxiety, (-) depressed mood PE: General: Alert, well-developed, no acute distress. HEENT: Tympanic membranes clear, mouth and throat unremarkable. Hearing loss noted in the right ear due to past eardrum damage. Vision is good post-cataract surgery with corrective lenses for reading. No pharyngeal erythema, no sinus tenderness. Neck: No JVD. No carotid bruit, carotids 2+ bilaterally. Lungs: Respirations unlabored, clear to auscultation, no wheezes, rales, or rhonchi, symmetric air entry. Heart: Regular rate and rhythm, S1 and S2 normal, no murmur, no rub or gallop. Abdomen: Soft, non-tender. Extremities: No edema. Pulses: 2+ symmetric radial pulse. Skin: Warm and dry. Assessment and Plan: 1. Medicare annual wellness visit, subsequent (Z00.00) - Completed Medicare annual wellness visit; reviewed health maintenance, safety, and advance directives. - Mini-cog test 5/5; no evidence of cognitive impairment. - Discussed importance of reliable medical information sources. - Follow-up in 1 year. 2. Obstructive sleep apnea (G47.33) - Followed by Dr. Mendoza; last appointment approximately one month ago. - Condition stable. 3. Eczema, unspecified type (L30.9) - No current issues reported this year. 4. Gout, unspecified cause, unspecified chronicity, unspecified site (M10.9) - No current issues reported this year. 5. Degeneration of intervertebral disc of lumbar region, unspecified whether pain present (M51.369) - Recent back pain after increased outdoor activity and digging; resolved with Tylenol. - No current back pain. 6. Encounter for immunization (Z23) - Administered influenza vaccine today; discussed benefits and typical side effects. - Discussed RSV and shingles vaccines; advised patient to obtain at pharmacy if desired. - Discussed COVID-19 vaccine; recommended per CDC guidelines for patients over 65. 7. Family history of colon cancer in father (Z80.0) 8. Screening for prostate cancer (Z12.5) - Colonoscopy on 06/17/2023 showed diverticulosis and hemorrhoids; repeat recommended in 5 years (2027). - Discussed family history of colon cancer. - Reviewed prior PSA testing. 9. Encounter for screening examination for other mental health and behavioral disorders (Z13.39) 10. Screening for depression (Z13.31) - Depression and anxiety screening negative. 11. Mixed hyperlipidemia (E78.2) - Last lipid panel on 06/13/2024: HDL slightly low (genetic), LDL minimally elevated at 102 mg/dL. - Order routine fasting labs (CBC, CMP, lipid panel); advised patient to wait at least 24 hours after today s visit to avoid insurance issues. Sophia Martin MD Recording using [employer] software for draft documentation of the visit was discussed with the patient/authorized strategic partnership representative; all questions welcomed and answered. Patient/authorized strategic partnership representative agreed to proceed documented in this encounter [facility] 08-17-2024 Telephone encounter Note Spoke with patient. Given message from provider's office. Patient verbalizes understanding. Noe Philippe RN [facility] 08-17-2024 Miscellaneous Notes Spoke with patient. Given message from provider's office. Patient verbalizes understanding. Noe Philippe RN Called and left message on patients voicemail to return call to the office and ask to speak with a triage nurse. Flavia Redding MA See note. He is overall ok. After provider reviews pt would like a copy mailed to him. Per 06/13/24 lab results: Message in labs: Sophia Martin MD 06/15/2024 8:08 AM EDT See TELEPHONE ENCOUNTER regarding lab results. Staff will call patient to review next steps. TE message: Sophia Martin MD 06/15/24 8:09 AM Note Let him know his ldl is a little higher. Watch cholesterol in the diet. Sophia Martin MD Pt reports he never heard back on lab results. Please review and advise if there is more to the result message. Latest Ref Rng 06/13/2024 WBC 3.70 - 11.00 k/uL 7.06 RBC 4.20 - 6.00 m/uL 4.98 Hemoglobin 13.0 - 17.0 g/dL 15.2 Hematocrit 39.0 - 51.0 % 45.7 MCV 80.0 - 100.0 fL 91.8 MCH 26.0 - 34.0 pg 30.5 MCHC 30.5 - 36.0 g/dL 33.3 RDW-CV 11.5 - 15.0 % 12.8 Platelet Count 150 - 400 k/uL 197 MPV 9.0 - 12.7 fL 10.1 Neut% % 63.4 Abs Neut (ANC) 1.45 - 7.50 k/uL 4.48 Lymph% % 21.1 Abs Lymph 1.00 - 4.00 k/uL 1.49 Bailey% % 9.1 Abs Bailey <0.87 k/uL 0.64 Eosin% % 4.7 Abs Eosin <0.46 k/uL 0.33 Baso% % 0.6 Abs Baso <0.11 k/uL 0.04 Immature Gran % % 1.1 IMMATURE GRANS (ABS) <0.10 k/uL 0.08 NRBC /100 WBC 0.0 Absolute nRBC <0.01 k/uL <0.01 DTYPE Auto Protein, Total 6.3 - 8.0 g/dL 6.8 Albumin 3.9 - 4.9 g/dL 4.2 Calcium 8.5 - 10.2 mg/dL 9.5 Bilirubin, Total 0.2 - 1.3 mg/dL 0.7 Alkaline Phosphatase 38 - 113 U/L 108 AST 14 - 40 U/L 28 ALT 10 - 54 U/L 32 Glucose 74 - 99 mg/dL 99 BUN 9 - 24 mg/dL 17 Creatinine 0.73 - 1.22 mg/dL 0.98 Sodium 136 - 144 mmol/L 142 Potassium 3.7 - 5.1 mmol/L 4.3 Chloride 98 - 107 mmol/L 105 CO2 22 - 30 mmol/L 26 Anion Gap 8 - 15 mmol/L 11 eGFR >=60 mL/min/1.73m 83 Cholesterol, Total <200 mg/dL 162 Triglyceride <150 mg/dL 105 HDL Cholesterol >39 mg/dL 39 (L) Non HDL Cholesterol <130 mg/dL 123 Fasting Time hrs 12 VLDL Cholesterol <30 mg/dL 21 TC:HDL Ratio <5.10 4.15 LDL Cholesterol <100 mg/dL 102 (H) LDL:HDL Ratio <2.54 2.62 (H) PSA Screening <2.60 ng/mL 1.27 Legend: (L) Low (H) High documented in this encounter [facility] 08-17-2024 Telephone encounter Note Called and left message on patients voicemail to return call to the office and ask to speak with a triage nurse. Flavia Redding MA [facility] 08-17-2024 Telephone encounter Note See note. He is overall ok. [facility] 08-17-2024 Telephone encounter Note After provider reviews pt would like a copy mailed to him. Per 06/13/24 lab results: Message in labs: Sophia Martin MD 06/15/2024 8:08 AM EDT See TELEPHONE ENCOUNTER regarding lab results. Staff will call patient to review next steps. TE message: Sophia Martin MD 06/15/24 8:09 AM Note Let him know his ldl is a little higher. Watch cholesterol in the diet. Sophia Martin MD Pt reports he never heard back on lab results. Please review and advise if there is more to the result message. Latest Ref Rng 06/13/2024 WBC 3.70 - 11.00 k/uL 7.06 RBC 4.20 - 6.00 m/uL 4.98 Hemoglobin 13.0 - 17.0 g/dL 15.2 Hematocrit 39.0 - 51.0 % 45.7 MCV 80.0 - 100.0 fL 91.8 MCH 26.0 - 34.0 pg 30.5 MCHC 30.5 - 36.0 g/dL 33.3 RDW-CV 11.5 - 15.0 % 12.8 Platelet Count 150 - 400 k/uL 197 MPV 9.0 - 12.7 fL 10.1 Neut% % 63.4 Abs Neut (ANC) 1.45 - 7.50 k/uL 4.48 Lymph% % 21.1 Abs Lymph 1.00 - 4.00 k/uL 1.49 Bailey% % 9.1 Abs Bailey <0.87 k/uL 0.64 Eosin% % 4.7 Abs Eosin <0.46 k/uL 0.33 Baso% % 0.6 Abs Baso <0.11 k/uL 0.04 Immature Gran % % 1.1 IMMATURE GRANS (ABS) <0.10 k/uL 0.08 NRBC /100 WBC 0.0 Absolute nRBC <0.01 k/uL <0.01 DTYPE Auto Protein, Total 6.3 - 8.0 g/dL 6.8 Albumin 3.9 - 4.9 g/dL 4.2 Calcium 8.5 - 10.2 mg/dL 9.5 Bilirubin, Total 0.2 - 1.3 mg/dL 0.7 Alkaline Phosphatase 38 - 113 U/L 108 AST 14 - 40 U/L 28 ALT 10 - 54 U/L 32 Glucose 74 - 99 mg/dL 99 BUN 9 - 24 mg/dL 17 Creatinine 0.73 - 1.22 mg/dL 0.98 Sodium 136 - 144 mmol/L 142 Potassium 3.7 - 5.1 mmol/L 4.3 Chloride 98 - 107 mmol/L 105 CO2 22 - 30 mmol/L 26 Anion Gap 8 - 15 mmol/L 11 eGFR >=60 mL/min/1.73m 83 Cholesterol, Total <200 mg/dL 162 Triglyceride <150 mg/dL 105 HDL Cholesterol >39 mg/dL 39 (L) Non HDL Cholesterol <130 mg/dL 123 Fasting Time hrs 12 VLDL Cholesterol <30 mg/dL 21 TC:HDL Ratio <5.10 4.15 LDL Cholesterol <100 mg/dL 102 (H) LDL:HDL Ratio <2.54 2.62 (H) PSA Screening <2.60 ng/mL 1.27 Legend: (L) Low (H) High [facility] 06-15-2024 Telephone encounter Note Let him know his ldl is a little higher. Watch cholesterol in the diet. Sophia Martin MD [facility] 06-15-2024 Miscellaneous Notes Let him know his ldl is a little higher. Watch cholesterol in the diet. Sophia Martin MD documented in this encounter [facility] 05-22-2024 History of Presen t illness Narrative Images from the original note were not included. Bartolome Liu is a 68 year old male here for a Medicare wellness visit. EMILY: uses CPAP regularly. Does not sleep without it. Sleeps well: Yes. Feels rested on awakening: Yes No daytime fatigue: No Snoring: No Benefiting from use of CPAP machine. GERD: Patient takes: pepcid OTC uses just if GERD flares maybe a couple of times per month. Heartburn is controlled: Yes. Bloody or black stools: No. Bowel changes: has been told to use stool softener PRN. A little more constipated than he wants to be. C-scope up to date. No gout issues. Medicare Health Risk Assessment General Health Very good Exercise: Minutes/Day Not regularly. 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 Alcohol: Daily Use no Alcohol: Drinks/Day NA Alcohol: 6 or more drinks no Feel off balance no Concerns: Teeth/Dentures no Concerns: Sexual function Yes, some ed. Has tried meds. Troubled by feelings Occasionally. Not significant. Frequency: Eating healthy diet Eats healthy ADLs requiring help Does his own. Safety precautions in home/vehicle Does well. Smoke, vape, chews tobacco None. Difficulty hearing Some. Had an injury in his right ear as a child. Left ear is normal. Difficulty seeing Not currently. Had cataract surgery last year. Current Providers Specialists: I have reviewed specialist-related care of the patient in the medical record. Outside specialists seen: Dr Mendoza. Had surgery with [facility]. Has seen him in the last year. Medical/Family history review Reviewed and updated problem list, medical/surgical/family/social history, medications, and allergies. Opioid use review Opioid Medications (last 90 days) No data to display Anxiety/Depression screening Recommendation: no further intervention at this time Cognitive screening Mini Cog Score: 5 Cognitive screening reviewed and No further action needed (score 3-5). Functional Observation Was the patient's Timed Up & Go test unsteady or ? 12 seconds? No Advance Care Planning Surrogate decision maker and/or advance care plan documented, and then daughter. REVIEW OF SYSTEMS GENERAL: No weight loss, malaise or fevers RESPIRATORY: Negative for cough, hemoptysis, wheezing, COPD, dyspnea or shortness of breath CARDIOVASCULAR: Negative for chest pain, leg swelling, hypertension, CHF or palpitations GI: No nausea, vomiting, or diarrhea : Negative for dysuria, frequency, incontinence, and stream is less than used to be but that is normal. SKIN: has a mole that needs looked at. Is on the side of his face. Was recommended to see derm previously. Still has not gone. HEMATOLOGY/LYMPHOLOGY: Negative for prolonged bleeding, bruising easily or swollen nodes Measurements BP 122/62 Pulse 65 Wt 93.4 kg (206 lb) SpO2 96% BMI 28.73 kg/m Vision Screening: Follows with optometry/ophthalmology PHYSICAL EXAM: GEN: pleasant, no acute distress, alert SKIN: raised lesion near left eye brow, slight pearly. Recommended derm HEENT: PERRL, EOMI, MMM NECK: supple, no lymphadenopathy, no thyromegaly HEART: regular rate, regular rhythm, no murmurs LUNGS: clear to auscultation, no wheezes or crackles, no increased WOB ABD: soft, non-distended, no masses palpated, non-tender EXT: no clubbing, no cyanosis, no edema Assessment/Plan Medicare annual wellness visit, subsequent (Z00.00) - Counseled on healthy diet and regular exercise - Fall avoidance information provided - Personalized prevention plan provided Sophia Martin MD documented in this encounter [facility] 01-10-2024 History of Presen t illness Narrative POPULATION HEALTH NAVIGATION OUTREACH Action/FYI Spoke to spouse who states that she will have patient call back to schedule appointment due to him still working. Provided spouse with contact information. Reason for Outreach Returned Call/MyChart Patient Contacted: Spoke to patient/parent/or legal guardian Patient identified by name and date of : Yes Returned call/MyChart actions taken: Patient declined: Patient will call back later to schedule or asks for a call back Navigation Signature: Shasta Bush MA January 10, 2024 2:58 PM POPULATION HEALTH NAVIGATION OUTREACH Action/FYI Patient is on [employer] list for below and needs appointment to address: RSV Vaccine(1 - 1-dose 60+ series) Covid-19 Vaccine( season) Advance Directive Discussion Behavioral Health Screening No results found for: HBA1C Patient due for: Medicare Annual Wellness Visit Advance Directives Left message for patient to call back. No mychart available. Reason for Outreach Care Gap/HCC or Scheduling Wellness Visits Care Gaps due: Medicare Annual Wellness Visit Patient Contacted: Unable or unnecessary to reach patient: Left message HCC related Navigation Signature: Shasta Bush MA January 10, 2024 8:38 AM documented in this encounter [facility] 06-17-2023 Nurse Note Arrived in phase II via cart. Left lateral position. Sedated, but responds to verbal stimuli. Color normal; skin warm and dry. Respirations wnl and unlabored. Abdomen soft and with + bowel sounds in quads X 4. Patient resting comfortably. Adelina Sierra RN documented in this encounter [facility] 06-17-2023 History and physical note Images from the original note were not included. HISTORY AND PHYSICAL Bartolome Liu 1955 REFERRING PHYSICIAN: Sophia Martin MD CHIEF COMPLAINT: Consult (Colonoscopy) HPI: The patient is a 67 year old male referred for endoscopy. Bartolome notes no colon complaints. Patient denies any change in bowel habits, weight changes, blood in stools, black tarry stools or abdominal pain. NOTES family history of colon cancer. The patient notes no upper GI complaints. Bartolome has undergone prior endoscopy. Last colonoscopy 09/04/[address] Slade under conscious sedation without concerning findings. Patient denies chest pain, shortness of breath or recent hospitalizations. Denies problems with sedation in the past. PAST MEDICAL HISTORY PAST MEDICAL HISTORY Diagnosis Date BPH (benign prostatic hypertrophy) with urinary obstruction 01/18/2014 Erectile dysfunction 06/24/2012 Gout, unspecified Obstructive sleep apnea 03/2018 Dr. Mendoza Other specified gastritis without mention of hemorrhage Overweight (BMI 25.0-29.9) Polyneuropathy in other diseases classified elsewhere (HCC) 2002 [facility] Seborrheic keratosis Unspecified constipation Constipation Unspecified hemorrhoids without mention of complication Hemorrhoids PAST SURGICAL HISTORY PAST SURGICAL HISTORY Procedure Laterality Date COLONOSCOPY FLX DX W/COLLJ SPEC WHEN PFRMD 06/07/2005 Colonoscopy-repeat in COLONOSCOPY FLX DX W/COLLJ SPEC WHEN PFRMD 09/04/2013 Colonoscopy, repeat in 5 years ESOPHAGOGASTRODUODENOSCOPY TRANSORAL DIAGNOSTIC 09/04/2013 EGD CURRENT MEDICATIONS Current Outpatient Medications Medication Sig famotidine (PEPCID) 40 mg tablet Take 40 mg by mouth as needed. CPAP/BIPAP/OTHER 1 % by VIA DEVICE route once daily. Type .CPAPSettings into a note to see current settings/supplies/DME information. No current facility-administered medications for this visit. ALLERGIES: Hay Fever [Seasonal Allergies] and Sulfa (Sulfonamide Antibiotics) PERSONAL HISTORY: SOCIAL HISTORY Social History Tobacco Use Smoking status: Never Smokeless tobacco: Never Vaping Use Vaping Use: Never used Substance Use Topics Alcohol use: Not Currently Drug use: No FAMILY HISTORY: FAMILY HISTORY FAMILY HISTORY Problem Relation Age of Onset Heart Mother Hypertension Mother Diabetes Mother Colon Cancer Father 74 Alcohol/Drug Brother Stroke Maternal Grandmother Colon Cancer Paternal Uncle Parkinson s Disease Paternal Uncle REVIEW OF SYMPTOMS: The review of systems data was entered by the nurse and reviewed by me Nursing Notes: Rah SherryJOHN abdi 05/10/2023 1:33 PM Signed REVIEW OF SYSTEMS: General: The patient denies fatigue, denies weight loss, denies weight gain, denies feeling hot, and denies feelings of cold. Eyes: The patient denies glaucoma, NOTES eye injury/surgery, wears glasses or contacts. Ear/Nose/Throat: The patient NOTES allergies, NOTES hayfever, NOTES ear infections, and denies bloody noses. Cardiovascular: The patient denies chest pain, denies heart disease, denies high blood pressure,denies cardiac stent, denies prior heart attack, denies irregular heart beat, denies high cholesterol, denies poor circulation, denies heart failure, other cardiac issues, denies claudication, denies cold feet, denies peripheral arterial stent. Respiratory: The patient denies tuberculosis, denies pneumonia, denies frequent cough, denies pulmonary embolism, denies shortness of breath, and denies coughing up blood. Gastrointestinal: The patient denies difficulty swallowing, NOTES acid reflux, denies ulcers, denies vomiting, denies jaundice/hepatitis, denies gallbladder problems, denies black or tarry stools, NOTES hemorrhoids, denies bleeding from rectum, denies diverticulitis, NOTES constipation, denies diarrhea, denies loss of stool control, and denies hernias. Kidney/Bladder: The patient denies kidney stones, denies urine infections, and denies bloody urine. Skin: The patient denies a history of skin cancer, denies bleeding/changing moles, and denies a history of skin rash. Neurologic: The patient denies a history of epilepsy/convulsions, denies headaches, denies head/spinal injuries, and denies stroke/TIA. Psychiatric: The patient denies psychiatric medications, denies depression, and denies voices, denies substance abuse. Endocrine: The patient denies thyroid disorders, denies diabetes, and denies hormonal problems. Hematologic: The patient denies a history of bruising, denies bleeding, and denies anemia, denies blood clots. Infections: The patient NOTES a history of measles and mumps, denies rheumatic fever, and denies sexually transmitted diseases. Musculoskeletal: The patient denies back pain/injury, NOTES back problems, denies sciatica, denies knee/foot trouble, denies arthritis, or NOTES gout. When was patient's last Mammogram screening? N/A Last Colonoscopy: 2012 Sherry Monreal LPN I have confirmed and edited as necessary, the PFSH and ROS obtained by others. Stacey Hillman PA-C PHYSICAL EXAMINATION: General: The patient is 67 year old male, well nourished, well hydrated in no acute distress. The patient is oriented to time, place, and person. VITALS: Blood pressure 122/64, pulse (!) 58, temperature 36.4 C (97.5 F), height 180.3 cm (5' 11), weight 94.4 kg (208 lb 3.2 oz), SpO2 97 %. Body mass index is 29.04 kg/m . HEENT: Normal cephalic, ataumatic, pupils are equally round, sclera are anicteric, mucous membranes are moist, oropharynx is clear. Neck has no masses, asymmetry or lymphadenopathy. Respiratory: Clear to auscultation and percussion. Normal respiratory excursion and pattern. Cardiac: Examination is regular rate and rhythm. Normal S1/S2 Abdominal exam: Soft, nontender, with no palpable masses. No hepatosplenomegaly. No palpable hernias. Extremities: no clubbing, cyanosis or edema. No adenopathy. LABORATORY VALUES: As Noted RADIOLOGIC STUDIES: As Noted Assessment IMPRESSION: encounter for high-risk surveillance colonoscopy due to family history of colon cancer PLAN: I have reviewed my findings with the surgeon. Will plan for lower endoscopy. We discussed the risks and benefits of the planned endoscopy. I have informed the patient that complications can occur including failure to complete the endoscopy and perforation. The patient had the opportunity to ask questions concerning the planned endoscopy. My staff has also explained the procedure to the patient in understandable terms and has given the patient printed material concerning the procedure. The patient freely consents to surgery. I plan to use Golytely bowel preparation I have explained to the patient the difference between IV conscious sedation and MAC anesthesia - and I have offered either, according to the patient's wishes. I have explained that with IV conscious sedation there is no anesthesia provider available and therefore there is a limitation of the amount of IV medications that can be given and that the patient may wake up in the middle of the procedure and/or experience pain/discomfort during the procedure. Further discussion was done and the patient was given the opportunity to ask questions and all questions were answered. The patient chooses IV conscious sedation, has tolerated well previously Diagnoses: (Z12.11) Encounter for screening for malignant neoplasm of colon (primary encounter diagnosis) (Z80.0) Family history of colon cancer in father Consultation requested by Dr. Martin for an opinion regarding colonoscopy. My final recommendations will be communicated back to the requesting physician by way of shared Medical record or letter to requesting physician via US mail. Stacey Hillman PA-C UPDATED HISTORY AND PHYSICAL EXAMINATION SERVICE DATE: 06/17/2023 SERVICE TIME: 7:47 AM PHYSICAL EXAM MUST BE COMPLETED ON ADMISSION The History and Physical (completed in the past 30 days) has been reviewed and the patient has been examined. The contents accurately reflect the patient's condition with the following additions or revisions since the H&P was completed. Examination indicates no changes. This H&P can be found in the attached. SIGNATURE: Rodolfo Hannah III, MD PATIENT NAME: Bartolome Liu DATE: June 17, 2023 TIME: 7:47 AM documented in this encounter [facility] 05-20-2023 Miscellaneous Notes Letter mailed to pt home of results. Renay Min MA Let her him know his labs are overall ok. documented in this encounter [facility] 05-10-2023 History of Presen t illness Narrative HISTORY AND PHYSICAL Rafaelamalia Davis Noe 1955 REFERRING PHYSICIAN: Sophia Martin MD CHIEF COMPLAINT: Consult (Colonoscopy) HPI: The patient is a 67 year old male referred for endoscopy. Bartolome notes no colon complaints. Patient denies any change in bowel habits, weight changes, blood in stools, black tarry stools or abdominal pain. NOTES family history of colon cancer. The patient notes no upper GI complaints. Bartolome has undergone prior endoscopy. Last colonoscopy 09/04/[address] Slade under conscious sedation without concerning findings. Patient denies chest pain, shortness of breath or recent hospitalizations. Denies problems with sedation in the past. PAST MEDICAL HISTORY Diagnosis Date BPH (benign prostatic hypertrophy) with urinary obstruction 01/18/2014 Erectile dysfunction 06/24/2012 Gout, unspecified Obstructive sleep apnea 03/2018 Dr. Mendoza Other specified gastritis without mention of hemorrhage Overweight (BMI 25.0-29.9) Polyneuropathy in other diseases classified elsewhere (HCC) 2002 [facility] Seborrheic keratosis Unspecified constipation Constipation Unspecified hemorrhoids without mention of complication Hemorrhoids PAST SURGICAL HISTORY Procedure Laterality Date COLONOSCOPY FLX DX W/COLLJ SPEC WHEN PFRMD 06/07/2005 Colonoscopy-repeat in COLONOSCOPY FLX DX W/COLLJ SPEC WHEN PFRMD 09/04/2013 Colonoscopy, repeat in 5 years ESOPHAGOGASTRODUODENOSCOPY TRANSORAL DIAGNOSTIC 09/04/2013 EGD Current Outpatient Medications Medication Sig famotidine (PEPCID) 40 mg tablet Take 40 mg by mouth as needed. CPAP/BIPAP/OTHER 1 % by VIA DEVICE route once daily. Type .CPAPSettings into a note to see current settings/supplies/DME information. No current facility-administered medications for this visit. ALLERGIES: Hay Fever [Seasonal Allergies] and Sulfa (Sulfonamide Antibiotics) PERSONAL HISTORY: Social History Tobacco Use Smoking status: Never Smokeless tobacco: Never Vaping Use Vaping Use: Never used Substance Use Topics Alcohol use: Not Currently Drug use: No FAMILY HISTORY: FAMILY HISTORY Problem Relation Age of Onset Heart Mother Hypertension Mother Diabetes Mother Colon Cancer Father 74 Alcohol/Drug Brother Stroke Maternal Grandmother Colon Cancer Paternal Uncle Parkinson s Disease Paternal Uncle REVIEW OF SYMPTOMS: The review of systems data was entered by the nurse and reviewed by mt Nursing Notes: Sherry Monreal LPN 05/10/2023 1:33 PM Signed REVIEW OF SYSTEMS: General: The patient denies fatigue, denies weight loss, denies weight gain, denies feeling hot, and denies feelings of cold. Eyes: The patient denies glaucoma, NOTES eye injury/surgery, wears glasses or contacts. Ear/Nose/Throat: The patient NOTES allergies, NOTES hayfever, NOTES ear infections, and denies bloody noses. Cardiovascular: The patient denies chest pain, denies heart disease, denies high blood pressure,denies cardiac stent, denies prior heart attack, denies irregular heart beat, denies high cholesterol, denies poor circulation, denies heart failure, other cardiac issues, denies claudication, denies cold feet, denies peripheral arterial stent. Respiratory: The patient denies tuberculosis, denies pneumonia, denies frequent cough, denies pulmonary embolism, denies shortness of breath, and denies coughing up blood. Gastrointestinal: The patient denies difficulty swallowing, NOTES acid reflux, denies ulcers, denies vomiting, denies jaundice/hepatitis, denies gallbladder problems, denies black or tarry stools, NOTES hemorrhoids, denies bleeding from rectum, denies diverticulitis, NOTES constipation, denies diarrhea, denies loss of stool control, and denies hernias. Kidney/Bladder: The patient denies kidney stones, denies urine infections, and denies bloody urine. Skin: The patient denies a history of skin cancer, denies bleeding/changing moles, and denies a history of skin rash. Neurologic: The patient denies a history of epilepsy/convulsions, denies headaches, denies head/spinal injuries, and denies stroke/TIA. Psychiatric: The patient denies psychiatric medications, denies depression, and denies voices, denies substance abuse. Endocrine: The patient denies thyroid disorders, denies diabetes, and denies hormonal problems. Hematologic: The patient denies a history of bruising, denies bleeding, and denies anemia, denies blood clots. Infections: The patient NOTES a history of measles and mumps, denies rheumatic fever, and denies sexually transmitted diseases. Musculoskeletal: The patient denies back pain/injury, NOTES back problems, denies sciatica, denies knee/foot trouble, denies arthritis, or NOTES gout. When was patient's last Mammogram screening? N/A Last Colonoscopy: 2012 Sherry Monreal LPN I have confirmed and edited as necessary, the PFSH and ROS obtained by others. Stacey Hillman PA-C PHYSICAL EXAMINATION: General: The patient is 67 year old male, well nourished, well hydrated in no acute distress. The patient is oriented to time, place, and person. VITALS: Blood pressure 122/64, pulse (!) 58, temperature 36.4 C (97.5 F), height 180.3 cm (5' 11), weight 94.4 kg (208 lb 3.2 oz), SpO2 97 %. Body mass index is 29.04 kg/m . HEENT: Normal cephalic, ataumatic, pupils are equally round, sclera are anicteric, mucous membranes are moist, oropharynx is clear. Neck has no masses, asymmetry or lymphadenopathy. Respiratory: Clear to auscultation and percussion. Normal respiratory excursion and pattern. Cardiac: Examination is regular rate and rhythm. Normal S1/S2 Abdominal exam: Soft, nontender, with no palpable masses. No hepatosplenomegaly. No palpable hernias. Extremities: no clubbing, cyanosis or edema. No adenopathy. LABORATORY VALUES: As Noted RADIOLOGIC STUDIES: As Noted Assessment IMPRESSION: encounter for high-risk surveillance colonoscopy due to family history of colon cancer PLAN: I have reviewed my findings with the surgeon. Will plan for lower endoscopy. We discussed the risks and benefits of the planned endoscopy. I have informed the patient that complications can occur including failure to complete the endoscopy and perforation. The patient had the opportunity to ask questions concerning the planned endoscopy. My staff has also explained the procedure to the patient in understandable terms and has given the patient printed material concerning the procedure. The patient freely consents to surgery. I plan to use Golytely bowel preparation I have explained to the patient the difference between IV conscious sedation and MAC anesthesia - and I have offered either, according to the patient's wishes. I have explained that with IV conscious sedation there is no anesthesia provider available and therefore there is a limitation of the amount of IV medications that can be given and that the patient may wake up in the middle of the procedure and/or experience pain/discomfort during the procedure. Further discussion was done and the patient was given the opportunity to ask questions and all questions were answered. The patient chooses IV conscious sedation, has tolerated well previously Diagnoses: (Z12.11) Encounter for screening for malignant neoplasm of colon (primary encounter diagnosis) (Z80.0) Family history of colon cancer in father Consultation requested by Dr. Martin for an opinion regarding colonoscopy. My final recommendations will be communicated back to the requesting physician by way of shared Medical record or letter to requesting physician via US mail. Stacey Hillman PA-C documented in this encounter [facility] 05-10-2023 Nurse Note REVIEW OF SYSTEMS: General: The patient denies fatigue, denies weight loss, denies weight gain, denies feeling hot, and denies feelings of cold. Eyes: The patient denies glaucoma, NOTES eye injury/surgery, wears glasses or contacts. Ear/Nose/Throat: The patient NOTES allergies, NOTES hayfever, NOTES ear infections, and denies bloody noses. Cardiovascular: The patient denies chest pain, denies heart disease, denies high blood pressure,denies cardiac stent, denies prior heart attack, denies irregular heart beat, denies high cholesterol, denies poor circulation, denies heart failure, other cardiac issues, denies claudication, denies cold feet, denies peripheral arterial stent. Respiratory: The patient denies tuberculosis, denies pneumonia, denies frequent cough, denies pulmonary embolism, denies shortness of breath, and denies coughing up blood. Gastrointestinal: The patient denies difficulty swallowing, NOTES acid reflux, denies ulcers, denies vomiting, denies jaundice/hepatitis, denies gallbladder problems, denies black or tarry stools, NOTES hemorrhoids, denies bleeding from rectum, denies diverticulitis, NOTES constipation, denies diarrhea, denies loss of stool control, and denies hernias. Kidney/Bladder: The patient denies kidney stones, denies urine infections, and denies bloody urine. Skin: The patient denies a history of skin cancer, denies bleeding/changing moles, and denies a history of skin rash. Neurologic: The patient denies a history of epilepsy/convulsions, denies headaches, denies head/spinal injuries, and denies stroke/TIA. Psychiatric: The patient denies psychiatric medications, denies depression, and denies voices, denies substance abuse. Endocrine: The patient denies thyroid disorders, denies diabetes, and denies hormonal problems. Hematologic: The patient denies a history of bruising, denies bleeding, and denies anemia, denies blood clots. Infections: The patient NOTES a history of measles and mumps, denies rheumatic fever, and denies sexually transmitted diseases. Musculoskeletal: The patient denies back pain/injury, NOTES back problems, denies sciatica, denies knee/foot trouble, denies arthritis, or NOTES gout. When was patient's last Mammogram screening? N/A Last Colonoscopy: 2012 Sherry Monreal LPN documented in this encounter [facility] 05-09-2023 History of Presen t illness Narrative Patient presents with: New Patient: Est care HPI: Patient presents today for office visit to est care. Is a transfer. Previous Pt of Dr. Sawyer. Last seen by Dr. Ruffin in 2020. Hx of GERD. Has maybe a couple episodes a month of heartburn. Takes Pepcid prn. EMILY: Follows with Dr. Reji Gamez of sleep apnea. Uses CPAP nightly. No snoring. Sleeping through the night. Feels rested when waking. Some daytime fatigue. Usually after lunch will doze off for about 15mins. Typically doesn't nap throughout the day. Benefiting from using CPAP. Refers to not being able to sleep without it. Recently had cataract surgery with [facility]. Right eye on 03/29/23 and left eye 04/15/23. Sight is much better. Refers to his eyes not being completely healed. States sometimes it feels like something is in his eyes. Bright lights bother him. Has some mild bph symptoms. Weaker stream. Trouble sometimes starting stream. Denies frequency. No nocturia. No urinary incontinence. Does not bother him bad enough to check. Had discussion with patient regarding risks and benefits of prostate screening. Allowed them to decide if they wished to proceed with screening including MATY and PSA. Has had psa in the past. Overdue for colonoscopy. Occasional constipation. MEDICATIONS: No current outpatient medications on file. No current facility-administered medications for this visit. ALLERGIES: ALLERGIES Allergen Reactions Hay Fever [Seasonal* Other: See Comments Sulfa (Sulfonamide * PAST MEDICAL HISTORY Diagnosis Date BPH (benign prostatic hypertrophy) with urinary obstruction 01/18/2014 Erectile dysfunction 06/24/2012 Gout, unspecified Obstructive sleep apnea 03/2018 Dr. Mendoza Other specified gastritis without mention of hemorrhage Overweight (BMI 25.0-29.9) Polyneuropathy in other diseases classified elsewhere (HCC) 2002 [facility] Seborrheic keratosis Unspecified constipation Constipation Unspecified hemorrhoids without mention of complication Hemorrhoids PAST SURGICAL HISTORY Procedure Laterality Date COLONOSCOPY FLX DX W/COLLJ SPEC WHEN PFRMD 06/07/2005 Colonoscopy-repeat in COLONOSCOPY FLX DX W/COLLJ SPEC WHEN PFRMD 09/04/2013 Colonoscopy, repeat in 5 years ESOPHAGOGASTRODUODENOSCOPY TRANSORAL DIAGNOSTIC 09/04/2013 EGD FAMILY HISTORY Problem Relation Age of Onset Heart Mother Hypertension Mother Diabetes Mother Colon Cancer Father 74 Alcohol/Drug Brother Stroke Maternal Grandmother Colon Cancer Paternal Uncle Parkinson s Disease Paternal Uncle Social History Tobacco Use Smoking status: Never Smokeless tobacco: Never Substance Use Topics Alcohol use: Not Currently Drug use: No Reviewed current medications, allergies, past medical history, surgical history, family history and social history today. REVIEW OF SYSTEMS No recent gout flares. Using celis juice. RESPIRATORY: Negative for cough, hemoptysis, wheezing, COPD, dyspnea or shortness of breath CARDIOVASCULAR: Negative for chest pain, leg swelling, hypertension, CHF or palpitations GI: chronic constipation. SKIN: has a number of skin lesion. All other reviewed and negative other than HPI. HEALTH MAINTENANCE: Reviewed health maintenance issues today and recommended the following in detail. SHINGRIX VACCINE(1 of 2) Never done COLORECTAL CANCER SCREENING due on 05/02/2019 COVID-19 VACCINE(4 - Moderna series) due on 12/03/2021 PNEUMOCOCCAL: 65+(2 - PPSV23 or PCV20) due on 05/03/2022 ADVANCE DIRECTIVE DISCUSSION - is his surrogate. DEPRESSION ASSESSMENT Never done VITALS: BP 120/66 Pulse 61 Ht 177.8 cm (5' 10) Wt 93.9 kg (207 lb) SpO2 97% BMI 29.70 kg/m Last 4 Encounter Wt Readings: Date: Wt: 05/03/2021 93.4 kg (206 lb) 04/13/2019 91.2 kg (201 lb) 04/11/2018 95.3 kg (210 lb) 11/12/2017 97.5 kg (215 lb) PHYSICAL EXAMINATION: General appearance: Well appearing, alert, in no acute distress, well-hydrated, well nourished. Skin: has numerous seborrhea on his back. Has a raised lesion on left adventism. Head: Normocephalic, no masses, lesions, tenderness or abnormalities Neck: Supple, no adenopathy; thyroid symmetric, normal size, no bruits Lungs: Lungs clear to auscultation. No wheezing, rhonchi, rales Heart: RRR without murmur, gallop, or rubs. No ectopy Abdomen: Normal abdominal exam, Abdomen soft, non-tender. Bowel sounds normal. No masses, organomegaly Extremities: No deformities, edema, skin discoloration, clubbing or cyanosis. Good capillary refill. Musculoskeletal: No joint swelling, deformity, or tenderness Rectal. No prostate nodules or tenderness. Normal size. ASSESSMENT/PLAN: 1. Benign prostatic hyperplasia without lower urinary tract symptoms - ICD9: 600.00, ICD10: N40.0 (primary diagnosis) - stable. Red flags for re-assessment reviewed with patient in detail. 2. Screening for colon cancer - ICD9: V76.51, ICD10: Z12.11 - get into surgery. 3. Obstructive sleep apnea - ICD9: 327.23, ICD10: G47.33 - stable 4. Gout, unspecified cause, unspecified chronicity, unspecified site - ICD9: 274.9, ICD10: M10.9 -continue to use celis juice. - CBC + DIFF - COMP METABOLIC PANEL 5. DDD (degenerative disc disease), lumbar - ICD9: 722.52, ICD10: M51.36 - stable 6. Family history of colon cancer in father - ICD9: V16.0, ICD10: Z80.0 - CONSULT TO GENERAL SURGERY 7. Need for vaccination - ICD9: V05.9, ICD10: Z23 - PNEUMOCOCCAL VACCINE (PNEUMOVAX 23) 8. Chronic constipation - ICD9: 564.00, ICD10: K59.09 - see surgery. - TSH BLD 9. Screening for prostate cancer - ICD9: V76.44, ICD10: Z12.5 - PSA/PROSTSPECAG SCRN 10. High triglycerides - ICD9: 272.1, ICD10: E78.1 - check labs. - LIPID PANEL BASIC - TSH BLD 11. Facial lesion. Refer to derm. Sophia Martin RTO in annually. and prn. documented in this encounter [facility] 05-28-2006 History of Past i llness Narrative Problem Noted Date Diagnosed Date Resolved Date Other specified gastritis wi thout mention of hemorrhage 05/28/2006 12/23/2014 [place] fever 07/29/2003 01/18/2014 Other myelopathy 07/29/2003 01/18/2014 documented as of this encounter (statuses as of 05/10/2023) [facility] History of Past illness Narrative* Problem Noted Date Diagnosed Date Resolved Date Other specified gastritis wi thout mention of hemorrhage 05/28/2006 12/23/2014 [place] fever 07/29/2003 01/18/2014 Other myelopathy 07/29/2003 01/18/2014 documented as of this encounter (statuses as of 05/20/2023) [facility] History of Past illness Narrative* Problem Noted Date Diagnosed Date Resolved Date Other specified gastritis wi thout mention of hemorrhage 05/28/2006 12/23/2014 [place] fever 07/29/2003 01/18/2014 Other myelopathy 07/29/2003 01/18/2014 documented as of this encounter (statuses as of 05/22/2023) [facility] History of Past illness Narrative* Problem Noted Date Diagnosed Date Resolved Date Other specified gastritis wi thout mention of hemorrhage 05/28/2006 12/23/2014 [place] fever 07/29/2003 01/18/2014 Other myelopathy 07/29/2003 01/18/2014 documented as of this encounter (statuses as of 07/28/2023) [facility] History of Past illness Narrative* Problem Noted Date Diagnosed Date Resolved Date Other specified gastritis wi thout mention of hemorrhage 05/28/2006 12/23/2014 [place] fever 07/29/2003 01/18/2014 Other myelopathy 07/29/2003 01/18/2014 documented as of this encounter (statuses as of 01/10/2024) [facility] Diagnosis Benign prostatic hyperplasia without lower urinary tract symptoms- Primary Screening for colon cancer Special screening for malignant neoplasms, colon Obstructive sleep apnea Obstructive sleep apnea (adult) (pediatric) Gout, unspecified cause, unspecified chronicity, unspecified site DDD (degenerative disc disease), lumbar Degeneration of lumbar or lumbosacral intervertebral disc Family history of colon cancer in father Need for vaccination Need for prophylactic vaccination and inoculation against unspecified single disease Chronic constipation Unspecified constipation Screening for prostate cancer Special screening for malignant neoplasm of prostate High triglycerides Pure hyperglyceridemia Facial lesion Unspecified disorder of skin and subcutaneous tissue [facility] Diagnosis Encounter for screening for malignant neoplasm of colon- Primary Special screening for malignant neoplasms, colon Family history of colon cancer in father [facility] Diagnosis Family history of colon cancer in father- Primary Family history of colon cancer Family history of malignant neoplasm of gastrointestinal tract [facility] Diagnosis Medicare annual wellness visit, subsequent- Primary Routine general medical examination at a health care facility Gout, unspecified cause, unspecified chronicity, unspecified site DDD (degenerative disc disease), lumbar Degeneration of lumbar or lumbosacral intervertebral disc Gastroesophageal reflux disease without esophagitis Esophageal reflux Obstructive sleep apnea Obstructive sleep apnea (adult) (pediatric) Family history of colon cancer in father Overweight (BMI 25.0-29.9) Overweight Screening for depression Encounter for screening examination for other mental health and behavioral disorders Screening for prostate cancer Special screening for malignant neoplasm of prostate Low HDL (under 40) Lipoprotein deficiencies Skin lesion Unspecified disorder of skin and subcutaneous tissue [facility] Diagnosis Medicare annual wellness visit, subsequent- Primary Routine general medical examination at a health care facility Obstructive sleep apnea Obstructive sleep apnea (adult) (pediatric) Eczema, unspecified type Gout, unspecified cause, unspecified chronicity, unspecified site Degeneration of intervertebral disc of lumbar region, unspecified whether pain present Encounter for immunization Need for other specified prophylactic vaccination against single bacterial disease Family history of colon cancer in father Encounter for screening examination for other mental health and behavioral disorders Screening for depression Screening for prostate cancer Special screening for malignant neoplasm of prostate Mixed hyperlipidemia [facility] Outpatient Procedure (Routine) - Closed Specialty Diagnoses / Procedures Referred By Randy t Referred To Contact [facility] Diagnoses Family history of colon cancer Procedures COLONOSCOPY SCREENING COLONOSCOPY FLX DX W/COLLJ SPEC WHEN Stacey Owen PA-C [address] [place] [address] [facility] [place] [address] [place] [id number] Referral ID Status Reason Start Date Expiration Date V isits Requested Visits Authorized [id number] Closed Auto-Generate d Referral 05/10/2023 05/10/2024 1 1 [facility] for visit Narrative* Outpatient Procedure (Routine) - Closed Specialty Diagnoses / Procedures Referred By Contac t Referred To Contact [facility] Diagnoses Family history of colon cancer Procedures COLONOSCOPY SCREENING COLONOSCOPY FLX DX W/COLLJ SPEC WHEN Stacey Owen PA-C [address] [place] [address] [facility] [id number] [place] [address] Referral ID Status Reason Start Date Expiration Date V isits Requested Visits Authorized [id number] Closed Auto-Generate d Referral 05/10/2023 05/10/2024 1 1 [facility] Reason for Referral Specialty Diagnoses / Procedures Referred By Contac t Referred To Contact Dermatology Diagnoses Facial lesion Procedures CONSULT TO DERMATOLOGY Sophia Martin MD [address] [place] [id number] Referral ID Status Reason Start Date Expiration Date Visits Requested Visits Authorized [id number] Ref Not Required PCP Requested Referral 05/09/2023 05/08/2024 1 1 Specialty Diagnoses / Procedures Referred By Contac t Referred To Contact General Surgery Diagnoses Family history of colon cancer in father Procedures CONSULT TO GENERAL SURGERY OFFICE/OUTPATIENT NEW HIGH MDM 60-74 MINUTES Sophia Martin MD [facility] [place] [address] Referral ID Status Reason Start Date Expiration Date Visits Requested Visits Authorized [id number] Pending Review PCP Requested Referral 05/09/2023 05/08/2024 1 1 Specialty Diagnoses / Procedures Referred By Contac t Referred To Contact Dermatology Diagnoses Skin lesion Procedures CONSULT TO DERMATOLOGY Spohia Martin MD [address] [place] [address] Referral ID Status Reason Start Date Expiration Date Visits Requested Visits Authorized [id number] Ref Not Required PCP Requested Referral 05/22/2024 05/22/2025 1 1 Medications Administered Section Inactive Administered Medications - up to 3 most recent administrations Medication Order MAR Action Action Date Dose Rate Site diphenhydrAMINE 12.5-50 mg injection (BENADRYL) 12.5-50 mg, INTRAVENOUS, DIRECTED, Starting on Sat06/17/23 at 0830, Until Sat06/17/23 at 1229, DOSING DIRECTED BY PHYSICIAN FOR PROCEDURAL SEDATION ONLY, Intraprocedure Given 06/17/2023 8:06 AM EDT 50 mg fentaNYL 50 mcg/mL 25-100 mcg injection (SUBLIMAZE) 25-100 mcg, INTRAVENOUS, DIRECTED, Starting on Sat06/17/23 at 0830, Until Sat06/17/23 at 1229, DOSING DIRECTED BY PHYSICIAN FOR PROCEDURAL SEDATION ONLY, Intraprocedure Given 06/17/2023 8:04 AM EDT 50 mcg lactated ringers iv infusion 30 mL/hr, INTRAVENOUS, CONTINUOUS, Starting on Sat06/17/23 at 0800, Until Sat06/17/23 at 0838, Preprocedure New Bag/Syringe/Diane le 06/17/2023 7:50 AM EDT 30 mL/hr 30 mL/hr Hand, Right midazolam 1-5 mg injection (VERSED) 1-5 mg, INTRAVENOUS, DIRECTED, Starting on Sat06/17/23 at 0830, Until Sat06/17/23 at 1229, DOSING DIRECTED BY PHYSICIAN FOR PROCEDURAL SEDATION ONLY, Intraprocedure Given 06/17/2023 8:04 AM EDT 3 mg Summary Purpose Family History No Family History Records Found Advance Directives No Advanced Directives Records Found Additional Source Comments Source Comments (unrecognize d section and content) In the event this informatio n is protected by the Federal Confidentiality of Alcohol and Drug Abuse Patient Records regulations: The Federal rules restrict any use of the information to criminally investigate or prosecute any alcohol or drug abuse patient.[facility] the event this information is protected by the Federal Confidentiality of Alcohol and Drug Abuse Patient Records regulations: The Federal rules restrict any use of the information to criminally investigate or prosecute any alcohol or drug abuse patient.[facility] the event this information is protected by the Federal Confidentiality of Alcohol and Drug Abuse Patient Records regulations: The Federal rules restrict any use of the information to criminally investigate or prosecute any alcohol or drug abuse patient.[facility] the event this information is protected by the Federal Confidentiality of Alcohol and Drug Abuse Patient Records regulations: The Federal rules restrict any use of the information to criminally investigate or prosecute any alcohol or drug abuse patient.[facility] the event this information is protected by the Federal Confidentiality of Alcohol and Drug Abuse Patient Records regulations: The Federal rules restrict any use of the information to criminally investigate or prosecute any alcohol or drug abuse patient.[facility] the event this information is protected by the Federal Confidentiality of Alcohol and Drug Abuse Patient Records regulations: The Federal rules restrict any use of the information to criminally investigate or prosecute any alcohol or drug abuse patient.[facility] Hospital[facility] the event this information is protected by the Federal Confidentiality of Alcohol and Drug Abuse Patient Records regulations: The Federal rules restrict any use of the information to criminally investigate or prosecute any alcohol or drug abuse patient.[facility] the event this information is protected by the Federal Confidentiality of Alcohol and Drug Abuse Patient Records regulations: The Federal rules restrict any use of the information to criminally investigate or prosecute any alcohol or drug abuse patient.[facility] Hospital[facility] the event this information is protected by the Federal Confidentiality of Alcohol and Drug Abuse Patient Records regulations: The Federal rules restrict any use of the information to criminally investigate or prosecute any alcohol or drug abuse patient.[facility] Reason for Visit (unrecogniz ed section and content) Reason Comments New Patient Est care Reason Comments Results Reason Comments Consult Colonoscopy Specialty Diagnoses / Procedures Referred By Randy duncan Referred To Contact General Surgery Diagnoses Family history of colon cancer in father Procedures CONSULT TO GENERAL SURGERY OFFICE/OUTPATIENT NEW HIGH MDM 60-74 MINUTES Sophia Martin MD [address] [place] [address] Referral ID Status Reason Start Date Expiration Date Visits Requested Visits Authorized [id number] Pending Review PCP Requested Referral 05/09/2023 05/08/2024 1 1 Reason Onset Date Comments Population Health Navigation Outreach 01/10/2024 [employer] - AWV, Care gaps, HCC gap closure - [facility] Reason Comments Physical Reason Comments Medicare Wellness Exam Care Teams (unrecognized sec tion and content) 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 Specialty Start Date End Date Sophia Martin MD [address] [place], [place] [phone] PCP - General Family Medicine 05/09/23 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 Specialty Start Date End Date Sophia Martin MD [address] [place], [place] [phone] PCP - General Family Medicine 05/09/23 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 Specialty Start Date End Date Sophia Martin MD [address] [place], [place] [phone] PCP - General Family Medicine 05/09/23 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 Specialty Start Date End Date Sophia Martin MD [address] [facility], [place] [phone] PCP - General Family Medicine 05/09/23 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 Specialty Start Date End Date Sophia Martin MD [address] [place], [place] [phone] PCP - General Family Medicine 05/09/23 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 Specialty Start Date End Date Sophia Martin MD [address] [place], [place] [phone] PCP - General Family Medicine 05/09/23 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 Specialty Start Date End Date Sophia Martin MD [address] [place], [place] [phone] PCP - General Family Medicine 05/09/23 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 Specialty Start Date End Date Sophia Martin MD [address] [place], [place] [phone] PCP - General Family Medicine 05/09/23 Sally Pathak APRN.FEDERAL AID COORDINATOR [address] [place], [place] [id number] Business Applications Manager [facility] 08/31/24 Cristiane Ledezma APRN.FEDERAL AID COORDINATOR [address] [place], [place] [address] Business Applications Manager [facility] 08/31/24 (unrecognized sect ion and content) No Status Records Found INFORMATION SOURCE (unrecogn ized section and content) DATE CREATED AUTHOR 07/13/2025 [facility] FOR RECORDS PERTAINING TO PATIENTS WHO ARE OR HAVE BEEN ENROLLED IN A CHEMICAL DEPENDENCY/SUBSTANCEABUSE PROGRAM, SOME INFORMATION MAY BE OMITTED. This clinical summary was aggregated from multiple sources. Caution should be exercised in using it in the provision of clinical care. This summary normalizes information from multiple sources, and as a consequence, information in this document may materially change the coding, format and clinical context of patient data. In addition, data may be omitted in some cases. CLINICAL DECISIONS SHOULD BE BASED ON THE PRIMARY CLINICAL RECORDS. [employer] [facility]. provides no warranty or guarantee of the accuracy or completeness of information in this document.
[2025-08-01 15:56] VITALS: BP 154/74; PULSE 70; RESP 14; O2SAT 98
--- NOTE | 2025-08-01 16:05 | EDS_ITS ---
HPI History of Present Illness Chief Complaint: Head Injury Informant: patient and spouse/S.O. Narrative Narrative: 69-year-old male presenting to the emergency room out of concern with head injury. Patient states that on Saturday he had struck his head on a piece of metal. He states he had some soreness to the high left vertex of the scalp. There was no bleeding. He noticed that in the past several days at times he has felt dizzy with laying down. Has not had any seizure or extensive headache. No vision changes. No arm or leg weakness. No nausea vomiting. Today he states he has been feeling better. He states that he took some Aleve last night and today. He did mention it to his today and out of abundance of precaution they brought him to emergency. He states he is currently not on any medications. [facility] Medical History High cholesterol Sleep apnea Allergy/AdvReac Type Severity Reaction Status Date / Time Sulfa (Sulfonamide Allergy Unknown Verified 08/01/25 12:48 Antibiotics) Social History Smoking Status: Never smoker ROS ROS ED ROS Narrative Intermittent dizziness with laying down Constitutional Constitutional ED: Denies chills, fever(s) or weight loss Eyes Eyes: Denies change in vision or diplopia ENT ENT ED: Denies ear pain, rhinorrhea or sore throat Cardiovascular Cardiovascular: Denies chest pain, orthopnea, palpitations or racing heartbeat Respiratory/Chest Respiratory/Chest: Denies cough, dyspnea or orthopnea Gastrointestinal Gastrointestinal: Denies abdominal pain, diarrhea, nausea or vomiting Genitourinary Genitourinary ED: Denies dysuria, hematuria or urinary frequency Musculoskeletal Musculoskeletal: Denies arthralgias or myalgias Integumentary Denies abscess or rash Neurologic Neurologic: Denies headache(s), paresthesias or weakness Psychiatric Psychiatric: Denies anxiety, depression, suicidal ideation or suicidal thoughts Endocrine Endocrinology: Denies polydipsia, polyphagia or polyuria Allergic/Immunologic Allergic/Immunologic ED: Denies mouth swelling, tongue swelling or urticaria EXAM Physical Exam Const Vital Signs: 08/01/25 12:46 08/01/25 13:16 08/01/25 14:45 Temperature 97.6 F L Temperature Source Oral Pulse Rate 66 57 L Respiratory Rate 18 16 Respiratory Effort Normal Respiratory Depth Normal Respiratory Pattern Normal Blood Pressure 162/69 H 167/75 H Blood Pressure Mean 100 105 Pulse Ox 100 98 Oxygen Delivery Method Room Air Room Air Room Air 08/01/25 15:56 Temperature Temperature Source Pulse Rate 70 Respiratory Rate 14 Respiratory Effort Respiratory Depth Respiratory Pattern Blood Pressure 154/74 H Blood Pressure Mean 100 Pulse Ox 98 Oxygen Delivery Method Room Air Positive well nourished and well developed General Appearance ED: well developed and NAD HEENT Reports normocephalic, head/scalp atraumatic and moist mucous membranes HEENT Narrative: There is no nystagmus Eyes PERRL and EOMs intact bilaterally Neck no lymphadenopathy, supple and no JVD Resp normal respiratory effort and clear to auscultation bilaterally Cardio regular rate, regular rhythm and no murmurs GI normal to inspection, nondistended, normoactive bowel sounds and non-tender Palpation: soft Back/Spine no CVA tenderness and normal ROM Extremity normal to inspection General Extremety ED: Negative for edema General Extremity: Negative for edema Neuro oriented x3, CN's II-XII intact bilaterally, moves all extremities, no focal motor deficits, no sensory deficits noted and gait normal Tashi Coma Scale: document GCS findings Spontaneous Obeys Commands Oriented 15 Sensorium / Orientation: alert Motor Exam: strength 5/5 throughout Psych mental status grossly normal Mood & Affect: Negative for depressed or tearful Skin no rashes or lesions noted and no wounds MDM MDM MDM Narrative Medical decision making narrative: Differential diagnosis includes but not limited to concussion intracranial hemorrhage subdural hematoma skull fracture vertigo Clinically I think is most likely a mild concussion. Would expect symptoms to be improving/resolving. Using shared decision making we obtained a head CT which is negative for intracranial hemorrhage skull fracture or subdural hematoma or other acute trauma. Patient was given reassurance. I have asked for follow-up with primary care if persistent symptomology. Naproxen as needed. History & Record Review Discussion w/independent historian: Patient and Significant other Radiography Diagnostic Testing: Clinical Impression(s) from Imaging Studies Brain CT 08/01/25 15:15 IMPRESSION: No acute abnormality. Reading Location: [facility] Discharge Plan Triage Chief Complaint: Head Injury ED Provider: Rodolfo Holt Dx/Rx/DC Orders Clinical Impression: Head injury, Concussion Instructions: ED Concussion Primary Care Provider: Gaurav Martin Referrals: Gaurav Martin MD [Primary Care Provider, Medical] - 1 Week if not improving Print Language: Chinese Disposition Disposition: Home, Self Care
[2025-08-01 16:55] VITALS: BP 155/78; PULSE 59; RESP 12; TEMP 36.4; O2SAT 96
== END 2025-08-01 17:01 | disposition home or self-care (01) ==
PROVIDERS: Emergency Provider Emergency Medicine; PCP Family Medicine; Visit Provider Emergency Medicine
DX: S06.0X0A Concussion without loss of consciousness, initial encounter (principal); E78.00 Pure hypercholesterolemia, unspecified; W22.09XA Striking against other stationary object, initial encounter
CPT/HCPCS: 70450; 99283